=== PATIENT | female | born 1975 | race Caucasian/White ===

== ENCOUNTER 2017-11-10 09:22 | Inpatient (IN) | payer OTHER ==
[2017-11-10 09:46] VITALS: BMI 26.1
--- NOTE | 2017-11-10 11:01 | HP ---
COWS - Scale Resting Pulse: 0= [place] 80 or Below Sweatin= Chills/Flushing Restless Observation: 1= Difficult to Sit Still Pupil Size: 0= Normal to Room Light Bone or Joint Aches: 4=Acute Joint/Muscle Pain Runny Nose/ Eye Tearin= Runny Nose/Eyes GI Upset > 30mins: 2= Nausea/Diarrhea Tremor Observation: 2= Slight Tremor Visible Yawning Observation: 1= 1-2x During Session Anxiety or Irritability: 1=Feels Anxious/Irritable Goose Flesh Skin: 0=Smooth Skin COWS Score: 14 CIWA Score - CIWA Score Nausea/Vomitin Muscle Tremors: 2 Anxiety: 2 Agitation: 1-Slight > Activity Paroxysmal Sweats: 2 Orientation: 0-Oriented Tacttile Disturbances: 3-Moderate Itch/Numb/Burn Auditory Disturbances: 0-None Visual Disturbances: 0-None Headache: 0-None Present CIWA-Ar Total Score: 12 Admission [facility] Chief Complaint: Heroin Withdrawal symptoms Allergies/Adverse Reactions: Allergies Allergy/AdvReac Type Severity Reaction Status Date / Time ampicillin Allergy Severe Swelling Verified 11/10/17 10:00 cephalexin monohydrate Allergy Severe Difficulty Verified 11/10/17 10:00 [From Keflex] Breathing Penicillins Allergy Severe Swelling Verified 11/10/17 10:00 Tetracyclines Allergy Severe Swelling Verified 11/10/17 10:00 IODINE Allergy Severe Rash Uncoded 11/10/17 10:00 History of Present Illness: Patient presents with Heroin withdrawal symptoms. Patient completed rehab one year ago for Xanax dependence. Patient started using snorting heroin 5 years ago. Uses up to 1-2 bags daily. Last time patient used heroin 11/09/17 in the morning. Patient also smokes crystal meth x 2 months. Smokes one to two times weekly. Last time patient smoked was 5 days ago. Patient has hx of ADHD, Bipolar disorder, anxiety, COPD and agoraphobia. S/P back surgery one year ago. Recently incarcerated and released 07/05/17. Patient currently treated for anxiety and adhd with Xanax and Aderral. Patient wants to stop using all controlled medication. Last prescription for Xanax and Adderral was 09/10/17. Last time patient took Xanax 4 days ago and Adderal 2 days ago. Patient denies seizures from withdrawals. Denies SI/HI. History of suicide attempt 2015. - Ebola screening Have you traveled outside of the country in the last 21 days: No Have you had contact with anyone from an Ebola affected area: No Have you been sick,other than usual withdrawal symptoms: No Do you have a fever: No - Review of Systems Constitutional: Chills, Night Sweats, Changes in sleep, Weight Stable EENT: reports: Tearing, Nose Congestion Respiratory: reports: Cough, Wheezing Cardiac: reports: No Symptoms Reported GI: reports: Nausea, Poor Appetite, Poor Fluid Intake, Abdominal cramping : reports: No Symptoms Reported Musculoskeletal: reports: Back Pain, Muscle Pain Integumentary: reports: Rash, Sweating Neuro: reports: Numbness, Tremors Endocrine: reports: No Symptoms Reported Hematology: reports: No Symptoms Reported Psychiatric: reports: Orientated x3, Anxious, Depressed Patient History - Patient Medical History Hx Anemia: No Hx Asthma: No Hx Chronic Obstructive Pulmonary Disease (COPD): Yes Hx Cancer: No Hx Cardiac Disorders: No Hx Congestive Heart Failure: No Hx Hypertension: Yes (untreated ) Hx Hypercholesterolemia: No Hx Pacemaker: No HX Cerebrovascular Accident: No Hx Seizures: No Hx Dementia: No Hx Diabetes: No Hx Gastrointestinal Disorders: No Hx Liver Disease: No Hx Genitourinary Disorders: No Hx Sexually Transmitted Disorders: No Hx Renal Disease (ESRD): No Hx Thyroid Disease: No Hx Human Immunodeficiency Virus (HIV): No (NEGATIVE HX) Hx Hepatitis C: No Hx Depression: Yes Hx Suicide Attempt: Yes (pill overdose in 2014) Hx Bipolar Disorder: Yes (AND ANXIETY DISORDER) Hx Schizophrenia: No - Patient Surgical History Past Surgical History: Yes Hx Neurologic Surgery: No Hx Cataract Extraction: No Hx Cardiac Surgery: No Hx Lung Surgery: No Hx Breast Surgery: Yes (bilateral implants at age 33) Hx Breast Biopsy: No Hx Abdominal Surgery: No Hx Appendectomy: No Hx Cholecystectomy: No Hx Genitourinary Surgery: No Hx Section: No Hx Orthopedic Surgery: No Hx Hysterectomy: No Other Surgical History: removal of cyst, thyroid in 1989/lower back sx in 10/2016 Anesthesia Reaction: No - PPD History Previous Implant?: Yes Documented Results: Negative w/proof Implanted On Prior [facility] Admission?: Yes Date: 09/22/15 Results: 0 mm PPD to be Administered?: Yes - Reproductive History Last Menstrual Period: 11/02/17 Patient : No - Smoking Cessation Smoking history: Current every day smoker Have you smoked in the past 12 months: Yes Aproximately how many cigarettes per day: 10 Hx Chewing Tobacco Use: No Initiated information on smoking cessation: Yes 'Breaking Loose' booklet given: 11/10/17 - Substance & Tx. History Hx Alcohol Use: No Hx Substance Use: Yes Substance Use Type: Heroin, Prescribed, Tranquilizers Hx Substance Use Treatment: Yes - Substances Abused Heroin Route: Inhalation Frequency: Daily Amount used: 2 bags Age of first use: 37 Date of Last Use: 11/09/17 PCP Route: Smoking Frequency: 1-3 times last 30 days Amount used: 1 joint Age of first use: 39 Date of Last Use: 10/27/17 Crystal meth Route: Smoking Frequency: 1-2 times per week Amount used: $60 Age of first use: 42 Date of Last Use: 11/07/17 Family Disease History - Family Disease History Family Disease History: Other: Father (DEPENDENT ON ETOH AND DRUGS), Sister ( ALCOHOLIC) Admission Physical Exam [facility] - Vital Signs Vital Signs: Vital Signs - 24 hr 11/10/17 09:40 Temperature 97 F L Pulse Rate 73 Respiratory 19 Rate Blood Pressure 109/50 - Physical General Appearance: Yes: Appropriately Dressed, Tremorous, Sweating, Anxious HEENTM: Yes: EOMI, Hearing grossly Normal, Normocephalic, Normal Voice, JUDIE, Pharynx Normal, Nasal Congestion Respiratory: Yes: Chest Non-Tender, Lungs Clear, Normal Breath Sounds, No Respiratory Distress, No Accessory Muscle Use Neck: Yes: No masses,lesions,Nodules, Supple, Trachea in good position Breast: Yes: Breast Exam Deferred Cardiology: Yes: Regular Rhythm, Regular Rate, S1, S2 Abdominal: Yes: Normal Bowel Sounds, Non Tender, Soft Genitourinary: Yes: Within Normal Limits Back: Yes: Muscle Spasm Musculoskeletal: Yes: full range of Motion, Back pain, Muscle Pain Extremities: Yes: Normal Capillary Refill, Normal Range of Motion, Non-Tender, Tremors Neurological: Yes: dish maker II-XII NML intact, Fully Oriented, Alert, Depressed Affect Integumentary: Yes: Normal Color, Warm, Moist, Rash Lymphatic: Yes: Within Normal Limits - Diagnostic (1) Opioid dependence with withdrawal Current Visit: Yes Status: Acute (2) COPD (chronic obstructive pulmonary disease) Current Visit: Yes Status: Chronic Qualifiers: COPD type: unspecified COPD Qualified Code(s): J44.9 - Chronic obstructive pulmonary disease, unspecified (3) Anxiety Current Visit: Yes Status: Chronic (4) Methamphetamine dependence Current Visit: Yes Status: Acute (5) Bipolar I disorder with depression Current Visit: No Status: Chronic (6) Chronic lower back pain Current Visit: Yes Status: Chronic Qualifiers: Back pain laterality: midline Sciatica laterality: sciatica laterality unspecified (7) PCP (phencyclidine) abuse Current Visit: No Status: Chronic (8) Sedative dependence Current Visit: No Status: Chronic Cleared for Admission [facility] - Detox or Rehab [facility] Level of Care: Medically Managed Detox Regimen/Protocol: Methadone [facility] Breath Alcohol Content Breath Alcohol Content: 0 Urine Pregancy Test - Result Urine Test Results: Negative- NO Line Present Urine Drug Screen - Results Drug Screen Negative: No Urine Drug Screen Results: OPI-Opiates, AMP-Amphetamines, MET-Methamphetamine, PCP-Phencyclidine, BZO-Benzodiazepines
[2017-11-10] MEDS ORDERED: MENTHOL/PHENOL 1 EACH UD MM PRN (11:12)
[2017-11-10] MEDS ORDERED: guaiFENesin/D-METHORPHAN HB 10 ML UNIT-DOSE CUPS PO PRN (11:12)
[2017-11-10] MEDS ORDERED: P-EPHED 60MG/TRIPROLIDI 2.5MG TABLET PO PRN (11:12)
[2017-11-10] MEDS ORDERED: MAG HYDROX/AL HYDROX/SIMETH 30 ML UNIT-DOSE CUP PO PRN (11:12)
[2017-11-10] MEDS ORDERED: LOPERAMIDE HCL 2 MG CAPSULE PO PRN (11:12)
[2017-11-10] MEDS ORDERED: NICOTINE POLACRILEX 2 MG GUM BUC PRN (11:12)
[2017-11-10] MEDS ORDERED: MAGNESIUM HYDROX 2400MG/30ML ORAL SUSPENSION 30 ML CUP PO PRN (11:12)
[2017-11-10] MEDS ORDERED: ACETAMINOPHEN 325 MG TABLET (FP) PO PRN (11:12)
[2017-11-10] MEDS ORDERED: MAGNESIUM CITRATE 300 ML BOTTLE PO PRN (11:12)
[2017-11-10] MEDS ORDERED: ALBUTEROL SO4 18 GM HFA INHALER IH PRN (11:14)
[2017-11-10] MEDS ORDERED: METHADONE HCL 10 MG TABLET (FOR DETOX USE ONLY) PO ONE ×2 (11:50→23:00)
--- NOTE | 2017-11-10 16:24 | CONSULT ---
[facility] Psychiatric Consult - Data Date of interview: 11/10/17 Admission source: [facility] Identifying data: Patient is a 42 year old woman, , domiciled, mother of five, unemployed and receiving financial assistance from [facility]. This is one of multiple admissions for patient. Pt. admitted to for heroin, PCP, and crystal meth dependence. Substance Abuse History: Following information confirmed with Ms. Odonnell: Smoking Cessation. Smoking history: Current every day smoker. Have you smoked in the past 12 months: Yes. Aproximately how many cigarettes per day: 10. Hx Chewing Tobacco Use: No. Initiated information on smoking cessation: Yes. ' Breaking Loose' booklet given: 11/10/17. - Substance & Tx. History. Hx Alcohol Use: No. Hx Substance Use: Yes. Substance Use Type: Heroin, Prescribed , Tranquilizers. Hx Substance Use Treatment: Yes. - Substances Abused. Heroin. Route: Inhalation. Frequency: Daily. Amount used: 2 bags. Age of first use: 37. Date of Last Use: 11/09/17. PCP. Route: Smoking. Frequency : 1-3 times last 30 days. Amount used: 1 joint. Age of first use: 39. Date of Last Use: 10/27/17. Crystal meth. Route: Smoking. Frequency: 1-2 times per week. Amount used: $60. Age of first use: 42. Date of Last Use: 11/07/17 Medical History: removal of cyst, thyroid in 1989/lower back sx in 10/2016, hypertension. Psychiatric History: Patient's first psychiatric contact was at 6 years old which resulted in a diagnosis of ADHD. Patient reports four psychiatric hospitalizations, most recently at [facility] three years ago. Outpatient care is provided at the [facility] in [place]. Pt. reports a diagnosis of Bipolar disorder and ADHD. Pt. is prescribed effexor 150mg ER + Abilify 30mg + Ambien 10mg + Thorazine 10mg TID + Tenex 1mg althought reports sub-optimal adherence to medications. Patient reports one suicide attempt via speedballing approximately four years which resulted in patient admitted to the ICU. Pt. currently denies suicidal and homicidal ideation. Physical/Sexual Abuse/Trauma History: Denies. Additional Comment: Urine Drug Screen Results: OPI-Opiates, AMP-Amphetamines, MET-Methamphetamine, PCP-Phencyclidine, BZO-Benzodiazepines. Incarcerated from April 2017- June 2017 for DWI Mental Status Exam - Mental Status Exam Alert and Oriented to: Time, Place, Person Cognitive Function: Good Patient Appearance: Well Groomed Mood: Euthymic Affect: Mood Congruent Patient Behavior: Appropriate, Cooperative Speech Pattern: Appropriate Voice Loudness: Normal Thought Process: Intact Thought Disorder: Not Present Hallucinations: Denies Suicidal Ideation: Denies Homicidal Ideation: Denies Insight/Judgement: Poor Sleep: Poorly Appetite: Fair Muscle strength/Tone: Normal Gait/Station: Normal Psychiatric Findings - Problem List ([place] 1, 2,3) (1) Methamphetamine dependence Current Visit: Yes Status: Acute (2) Opioid dependence with withdrawal Current Visit: Yes Status: Acute (3) Opioid dependence Current Visit: Yes Status: Chronic (4) PCP (phencyclidine) abuse Current Visit: Yes Status: Acute (5) Sedative dependence Current Visit: Yes Status: Chronic (6) Substance induced mood disorder Current Visit: Yes Status: Acute - Initial Treatment Plan Initial Treatment Plan: Psychoeducation provided. Detoxification in progress. Effexor 150mg ER + Abilify 30mg qhs + Ambien 10mg qhs prn ordered. Benefits and side effects discussed. Verbal consent given. Will continue to monitor.
[2017-11-10 18:00] LABS: URINE APPEARANCE CLOUDY; URINE BLOOD NEGATIVE (NEGATIVE); URINE COLOR AMBER; URINE GLUCOSE (UA) 1+ (NEGATIVE); URINE KETONE TRACE (NEGATIVE); URINE LEUK ESTERASE TRACE (NEGATIVE); URINE NITRITE NEGATIVE (NEGATIVE)
[2017-11-10 18:19] LABS: URINE PROTEIN 1+ (NEGATIVE)
[2017-11-10 18:21] LABS: CALCIUM OXALATE CRYSTALS FEW /hpf (NONE SEEN); EPI CELLS MANY /HPF (FEW); URINE BACTERIA RARE /hpf (NONE SEEN); URINE HYALINE CAST 7 /lpf; URINE MUCUS MODERATE
[2017-11-10] MEDS ORDERED: MELATONIN 5 MG TABLETS PO PRN (22:00)
[2017-11-10] MEDS: ARIPiprazole 15 MG TABLET PO SCH (22:10)
[2017-11-10] MEDS: THIAMINE HCL 100 MG TABLET (FP) PO SCH (22:11)
[2017-11-10] MEDS: diazePAM 5 MG TABLET PO PRN (22:14)
[2017-11-10] MEDS: ZOLPIDEM TARTRATE 10 MG TABLET (PARK CARE ONLY) PO PRN (22:15)
[2017-11-11 09:57] LABS: HEMATOCRIT 39.7 % (32.4-45.2); HEMOGLOBIN 12.9 GM/dL (10.7-15.3); MCHC 32.5 g/dl (32.0-36.0); MEAN CELL VOLUME 92.2 fl (80-96); MEAN PLT VOLUME 8.8 fl (7.5-11.1); PLATELET COUNT 362 K/MM3 (134-434); RBC 4.31 M/mm3 (3.60-5.2); RDW 14.4 % (11.6-15.6); WHITE BLOOD COUNT 12.1 K/mm3 (4.0-10.0)
[2017-11-11] MEDS ORDERED: METHADONE HCL 10 MG TABLET (FOR DETOX USE ONLY) PO ONE (10:00)
[2017-11-11] MEDS: PRENATAL VITAMINS W/ FOLIC ACID TABLET (FP) PO SCH (10:19)
[2017-11-11] MEDS: diazePAM 5 MG TABLET PO PRN ×2 (10:20→22:21)
[2017-11-11] MEDS: NICOTINE 21 MG/24 HOURS TOPICAL PATCH TD SCH (10:20)
[2017-11-11] MEDS: VENLAFAXINE HCL 150 MG E.R. CAPSULE PO SCH (10:20)
[2017-11-11] MEDS: IBUPROFEN 400 MG TABLET (FP) PO PRN (10:22)
[2017-11-11 10:29] LABS: ALBUMIN 4.5 g/dl (3.4-5.0); ANION GAP 10 (8-16); BLOOD UREA NITROGEN 18 mg/dL (7-18); CALCIUM 9.6 mg/dL (8.5-10.1); CHLORIDE 101 mmol/L (98-107); CO2 26 mmol/L (21-32); GLUCOSE,RANDOM 117 mg/dL (74-106); POTASSIUM 4.1 mmol/L (3.5-5.1); SODIUM 137 mmol/L (136-145)
[2017-11-11 10:31] LABS: ALK PHOS 95 U/L (45-117); BILIRUBIN,TOTAL 0.4 mg/dL (0.2-1.0); CREATININE 1.2 mg/dL (0.55-1.02); SGOT/AST 17 U/L (15-37); SGPT/ALT 22 U/L (12-78); TOT PROT 7.9 g/dl (6.4-8.2)
--- NOTE | 2017-11-11 11:11 | PN ---
[facility] COWS - Scale Resting Pulse: 0= [place] 80 or Below Sweatin= Chills/Flushing Restless Observation: 3= Extraneous Movement Pupil Size: 1= Pupils >than Normal Bone or Joint Aches: 2= Severe Diffuse Aches Runny Nose/ Eye Tearin= Runny Nose/Eyes GI Upset > 30mins: 2= Nausea/Diarrhea Tremor Observation of Outstretched Hands: 2= Slight Tremor Visible Yawning Observation: 1= 1-2x During Session Anxiety or Irritability: 2=Irritable/Anxious Goose Flesh Skin: 0=Smooth Skin COWS Score: 16 [facility] Progress Note (SOAP) Subjective: alert,irritable,anxious,interrupted sleep,pain in the body and back Objective: 11/11/17 11:06 Vital Signs Temperature 97.7 F 11/11/17 09:52 Pulse Rate 60 11/11/17 09:52 Respiratory Rate 18 11/11/17 09:52 Blood Pressure 92/50 11/11/17 09:52 O2 Sat by Pulse Oximetry (%) ekg sinus bradycardia 52/min nonspecific t no chest pain,no sob,no dizziness Laboratory Last Values WBC 12.1 K/mm3 (4.0-10.0) H D 11/11/17 05:50 RBC 4.31 M/mm3 (3.60-5.2) 11/11/17 05:50 Hgb 12.9 GM/dL (10.7-15.3) D 11/11/17 05:50 Hct 39.7 % (32.4-45.2) 11/11/17 05:50 MCV 92.2 fl (80-96) 11/11/17 05:50 MCH 30.0 pg (25.7-33.7) 11/11/17 05:50 MCHC 32.5 g/dl (32.0-36.0) 11/11/17 05:50 RDW 14.4 % (11.6-15.6) D 11/11/17 05:50 Plt Count 362 K/MM3 (134-434) 11/11/17 05:50 MPV 8.8 fl (7.5-11.1) 11/11/17 05:50 Sodium 137 mmol/L (136-145) 11/11/17 05:50 Potassium 4.1 mmol/L (3.5-5.1) 11/11/17 05:50 Chloride 101 mmol/L (98-107) 11/11/17 05:50 Carbon Dioxide 26 mmol/L (21-32) 11/11/17 05:50 Anion Gap 10 (8-16) 11/11/17 05:50 BUN 18 mg/dL (7-18) 11/11/17 05:50 Creatinine 1.2 mg/dL (0.55-1.02) H 11/11/17 05:50 Creat Clearance w eGFR 49.03 (>60) 11/11/17 05:50 Random Glucose 117 mg/dL (74-106) H 11/11/17 05:50 Calcium 9.6 mg/dL (8.5-10.1) 11/11/17 05:50 Total Bilirubin 0.4 mg/dL (0.2-1.0) D 11/11/17 05:50 AST 17 U/L (15-37) 11/11/17 05:50 ALT 22 U/L (12-78) 11/11/17 05:50 Alkaline Phosphatase 95 U/L (45-117) 11/11/17 05:50 Total Protein 7.9 g/dl (6.4-8.2) 11/11/17 05:50 Albumin 4.5 g/dl (3.4-5.0) 11/11/17 05:50 Urine Color Brinda 11/10/17 15:00 Urine Appearance Cloudy 11/10/17 15:00 Urine pH 5.0 (5.0-8.0) 11/10/17 15:00 Ur Specific [place] 1.033 (1.001-1.035) 11/10/17 15:00 Urine Protein 1+ (NEGATIVE) H 11/10/17 15:00 Urine Glucose (UA) 1+ (NEGATIVE) H 11/10/17 15:00 Urine Ketones Trace (NEGATIVE) H 11/10/17 15:00 Urine Blood Negative (NEGATIVE) 11/10/17 15:00 Urine Nitrite Negative (NEGATIVE) 11/10/17 15:00 Urine Bilirubin 4.0 (<2.0 mg/dL) 11/10/17 15:00 Urine Urobilinogen 2.0 mg/dL (0.2-1.0) H 11/10/17 15:00 Ur Leukocyte Esterase Trace (NEGATIVE) 11/10/17 15:00 Urine WBC (Auto) 7 /hpf (3-5) 11/10/17 15:00 Urine RBC (Auto) 6 /hpf (0-3) 11/10/17 15:00 Ur Epithelial Cells Many /HPF (FEW) 11/10/17 15:00 Calcium Oxalate Crystal Few /hpf (NONE SEEN) 11/10/17 15:00 Urine Bacteria Rare /hpf (NONE SEEN) 11/10/17 15:00 Hyaline Casts 7 /lpf 11/10/17 15:00 Urine Mucus Moderate 11/10/17 15:00 Assessment: 11/11/17 11:11 withdrawal symptom Plan: continue detox,encourage oral fluid,bgm in am initial glucose 117, wbc is 12,100,repeat ua and cbc in am
[2017-11-11] MEDS: hydrOXYzine PAMOATE 50 MG CAPSULE (FP) PO PRN (11:30)
--- NOTE | 2017-11-11 13:35 | EKG ---
Test Reason : Blood Pressure : / mmHG Vent. Rate : 067 BPM Atrial Rate : 067 BPM P-R Int : 136 ms QRS Dur : 084 ms QT Int : 428 ms P-R-T Axes : 083 068 071 degrees QTc Int : 452 ms NORMAL SINUS RHYTHM NONSPECIFIC ST AND T WAVE ABNORMALITY ABNORMAL ECG WHEN COMPARED WITH ECG OF 02-JUN-2012 18:02, NO SIGNIFICANT CHANGE WAS FOUND Confirmed by ARTEMIO RAMÍREZ MD ([id number]) on 11/11/2017 1:35:01 PM Referred By: Confirmed By:ARTEMIO RAMÍREZ MD
[2017-11-11] MEDS: THIAMINE HCL 100 MG TABLET (FP) PO SCH (22:21)
[2017-11-11] MEDS: ARIPiprazole 15 MG TABLET PO SCH (22:21)
[2017-11-11] MEDS: ZOLPIDEM TARTRATE 10 MG TABLET (PARK CARE ONLY) PO PRN (22:21)
[2017-11-12] MEDS ORDERED: METHADONE HCL 5 MG TABLET (FOR DETOX USE ONLY) PO ONE (10:00)
[2017-11-12 10:14] LABS: HEMATOCRIT 38.6 % (32.4-45.2); HEMOGLOBIN 12.6 GM/dL (10.7-15.3); MCH 29.9 pg (25.7-33.7); MCHC 32.7 g/dl (32.0-36.0); MEAN CELL VOLUME 91.4 fl (80-96); MEAN PLT VOLUME 8.2 fl (7.5-11.1); PLATELET COUNT 305 K/MM3 (134-434); RBC 4.22 M/mm3 (3.60-5.2); RDW 14.6 % (11.6-15.6); WHITE BLOOD COUNT 7.7 K/mm3 (4.0-10.0)
--- NOTE | 2017-11-12 10:25 | EKG ---
Test Reason : Blood Pressure : / mmHG Vent. Rate : 052 BPM Atrial Rate : 052 BPM P-R Int : 124 ms QRS Dur : 084 ms QT Int : 452 ms P-R-T Axes : 058 073 072 degrees QTc Int : 420 ms SINUS BRADYCARDIA NONSPECIFIC ST AND T WAVE ABNORMALITY ABNORMAL ECG WHEN COMPARED WITH ECG OF 10-NOV-2017 12:23, NO SIGNIFICANT CHANGE WAS FOUND Confirmed by ANNITA DUFFY MD ([id number]) on 11/12/2017 10:24:53 AM Referred By: Confirmed By:ANNITA DUFFY MD
[2017-11-12] MEDS: PRENATAL VITAMINS W/ FOLIC ACID TABLET (FP) PO SCH (10:47)
[2017-11-12] MEDS: VENLAFAXINE HCL 150 MG E.R. CAPSULE PO SCH (10:48)
[2017-11-12] MEDS: NICOTINE 21 MG/24 HOURS TOPICAL PATCH TD SCH (10:49)
[2017-11-12] MEDS: diazePAM 5 MG TABLET PO PRN ×3 (10:51→22:09)
--- NOTE | 2017-11-12 11:45 | PN ---
[facility] CIWA - CIWA Score Nausea/Vomitin Muscle Tremors: 3 Anxiety: 3 Agitation: 2 Paroxysmal Sweats: 1-Minimal Palms Moist Orientation: 0-Oriented Tacttile Disturbances: 1-Very Mild Itch/Numbness Auditory Disturbances: 1-Very Mild Visual Disturbances: 0-None Headache: 2-Mild CIWA-Ar Total Score: 16 [facility] COWS - Scale Resting Pulse: 0= [place] 80 or Below Sweatin= Chills/Flushing Restless Observation: 3= Extraneous Movement Pupil Size: 1= Pupils >than Normal Bone or Joint Aches: 2= Severe Diffuse Aches Runny Nose/ Eye Tearin= Runny Nose/Eyes GI Upset > 30mins: 2= Nausea/Diarrhea Tremor Observation of Outstretched Hands: 2= Slight Tremor Visible Yawning Observation: 1= 1-2x During Session Anxiety or Irritability: 2=Irritable/Anxious Goose Flesh Skin: 0=Smooth Skin COWS Score: 16 [facility] Progress Note (SOAP) Subjective: alert,irritable,anxious,interrupted sleep,pain in the body and back,tremor Objective: 11/12/17 11:42 Vital Signs Temperature 97.7 F 11/12/17 08:55 Pulse Rate 53 L 11/12/17 08:55 Respiratory Rate 18 11/12/17 08:55 Blood Pressure 108/59 11/12/17 08:55 O2 Sat by Pulse Oximetry (%) Laboratory Last Values WBC 7.7 K/mm3 (4.0-10.0) D 11/12/17 07:30 RBC 4.22 M/mm3 (3.60-5.2) 11/12/17 07:30 Hgb 12.6 GM/dL (10.7-15.3) 11/12/17 07:30 Hct 38.6 % (32.4-45.2) 11/12/17 07:30 MCV 91.4 fl (80-96) 11/12/17 07:30 MCH 29.9 pg (25.7-33.7) 11/12/17 07:30 MCHC 32.7 g/dl (32.0-36.0) 11/12/17 07:30 RDW 14.6 % (11.6-15.6) 11/12/17 07:30 Plt Count 305 K/MM3 (134-434) 11/12/17 07:30 MPV 8.2 fl (7.5-11.1) 11/12/17 07:30 Sodium 137 mmol/L (136-145) 11/11/17 05:50 Potassium 4.1 mmol/L (3.5-5.1) 11/11/17 05:50 Chloride 101 mmol/L (98-107) 11/11/17 05:50 Carbon Dioxide 26 mmol/L (21-32) 11/11/17 05:50 Anion Gap 10 (8-16) 11/11/17 05:50 BUN 18 mg/dL (7-18) 11/11/17 05:50 Creatinine 1.2 mg/dL (0.55-1.02) H 11/11/17 05:50 Creat Clearance w eGFR 49.03 (>60) 11/11/17 05:50 Random Glucose 117 mg/dL (74-106) H 11/11/17 05:50 Fasting Glucose 80 mg/dL (70-105) 11/12/17 07:30 Calcium 9.6 mg/dL (8.5-10.1) 11/11/17 05:50 Total Bilirubin 0.4 mg/dL (0.2-1.0) D 11/11/17 05:50 AST 17 U/L (15-37) 11/11/17 05:50 ALT 22 U/L (12-78) 11/11/17 05:50 Alkaline Phosphatase 95 U/L (45-117) 11/11/17 05:50 Total Protein 7.9 g/dl (6.4-8.2) 11/11/17 05:50 Albumin 4.5 g/dl (3.4-5.0) 11/11/17 05:50 Urine Color Brinda 11/10/17 15:00 Urine Appearance Cloudy 11/10/17 15:00 Urine pH 5.0 (5.0-8.0) 11/10/17 15:00 Ur Specific [place] 1.033 (1.001-1.035) 11/10/17 15:00 Urine Protein 1+ (NEGATIVE) H 11/10/17 15:00 Urine Glucose (UA) 1+ (NEGATIVE) H 11/10/17 15:00 Urine Ketones Trace (NEGATIVE) H 11/10/17 15:00 Urine Blood Negative (NEGATIVE) 11/10/17 15:00 Urine Nitrite Negative (NEGATIVE) 11/10/17 15:00 Urine Bilirubin 4.0 (<2.0 mg/dL) 11/10/17 15:00 Urine Urobilinogen 2.0 mg/dL (0.2-1.0) H 11/10/17 15:00 Ur Leukocyte Esterase Trace (NEGATIVE) 11/10/17 15:00 Urine WBC (Auto) 7 /hpf (3-5) 11/10/17 15:00 Urine RBC (Auto) 6 /hpf (0-3) 11/10/17 15:00 Ur Epithelial Cells Many /HPF (FEW) 11/10/17 15:00 Calcium Oxalate Crystal Few /hpf (NONE SEEN) 11/10/17 15:00 Urine Bacteria Rare /hpf (NONE SEEN) 11/10/17 15:00 Hyaline Casts 7 /lpf 11/10/17 15:00 Urine Mucus Moderate 11/10/17 15:00 11/12/17 11:44 Laboratory Results - last 24 hr 11/12/17 11/12/17 07:30 07:30 WBC 7.7 D RBC 4.22 Hgb 12.6 Hct 38.6 MCV 91.4 MCH 29.9 MCHC 32.7 RDW 14.6 Plt Count 305 MPV 8.2 Fasting Glucose 80 Assessment: 11/12/17 11:44 withdrawal symptom Plan: continue detox
[2017-11-12] MEDS: CYCLOBENZAPRINE HCL 10 MG TABLET (FP) PO PRN (17:06)
[2017-11-12 17:16] LABS: URINE APPEARANCE CLOUDY; URINE BILIRUBIN NEGATIVE (<2.0 mg/dL); URINE BLOOD NEGATIVE (NEGATIVE); URINE COLOR DKYELLOW; URINE GLUCOSE (UA) NEGATIVE (NEGATIVE); URINE KETONE TRACE (NEGATIVE); URINE LEUK ESTERASE TRACE (NEGATIVE); URINE NITRITE NEGATIVE (NEGATIVE); URINE UROBILINOGEN NEGATIVE mg/dL (0.2-1.0)
[2017-11-12 17:29] LABS: URINE PROTEIN 1+ (NEGATIVE)
[2017-11-12 17:32] LABS: EPI CELLS MANY /HPF (FEW); URINE BACTERIA MODERATE /hpf (NONE SEEN); URINE MUCUS MANY
[2017-11-12] MEDS: THIAMINE HCL 100 MG TABLET (FP) PO SCH (22:08)
[2017-11-12] MEDS: ARIPiprazole 15 MG TABLET PO SCH (22:08)
[2017-11-12] MEDS: cloNIDine HCL 0.1 MG TABLET PO SCH (22:09)
[2017-11-12] MEDS: ZOLPIDEM TARTRATE 10 MG TABLET (PARK CARE ONLY) PO PRN (22:11)
[2017-11-13] MEDS ORDERED: METHADONE HCL 5 MG TABLET (FOR DETOX USE ONLY) PO ONE (10:00)
[2017-11-13] MEDS: PRENATAL VITAMINS W/ FOLIC ACID TABLET (FP) PO SCH (10:26)
[2017-11-13] MEDS: cloNIDine HCL 0.1 MG TABLET PO SCH ×2 (10:26→22:15)
[2017-11-13] MEDS: VENLAFAXINE HCL 150 MG E.R. CAPSULE PO SCH (10:26)
[2017-11-13] MEDS: NICOTINE 21 MG/24 HOURS TOPICAL PATCH TD SCH (10:26)
[2017-11-13] MEDS: LIDOCAINE 5% TOPICAL PATCH TP SCH (10:27)
[2017-11-13] MEDS: CYCLOBENZAPRINE HCL 10 MG TABLET (FP) PO PRN ×2 (10:31→22:17)
[2017-11-13] MEDS: diazePAM 5 MG TABLET PO PRN (10:31)
--- NOTE | 2017-11-13 11:26 | PN ---
S Progress Note Note: c/o of back pain, body aches, chills Vital Signs Temperature 98.2 F 11/13/17 10:00 Pulse Rate 68 11/13/17 10:00 Respiratory Rate 18 11/13/17 10:00 Blood Pressure 106/62 11/13/17 10:00 O2 Sat by Pulse Oximetry (%) Laboratory Last Values WBC 7.7 K/mm3 (4.0-10.0) D 11/12/17 07:30 RBC 4.22 M/mm3 (3.60-5.2) 11/12/17 07:30 Hgb 12.6 GM/dL (10.7-15.3) 11/12/17 07:30 Hct 38.6 % (32.4-45.2) 11/12/17 07:30 MCV 91.4 fl (80-96) 11/12/17 07:30 MCH 29.9 pg (25.7-33.7) 11/12/17 07:30 MCHC 32.7 g/dl (32.0-36.0) 11/12/17 07:30 RDW 14.6 % (11.6-15.6) 11/12/17 07:30 Plt Count 305 K/MM3 (134-434) 11/12/17 07:30 MPV 8.2 fl (7.5-11.1) 11/12/17 07:30 Sodium 137 mmol/L (136-145) 11/11/17 05:50 Potassium 4.1 mmol/L (3.5-5.1) 11/11/17 05:50 Chloride 101 mmol/L (98-107) 11/11/17 05:50 Carbon Dioxide 26 mmol/L (21-32) 11/11/17 05:50 Anion Gap 10 (8-16) 11/11/17 05:50 BUN 18 mg/dL (7-18) 11/11/17 05:50 Creatinine 1.2 mg/dL (0.55-1.02) H 11/11/17 05:50 Creat Clearance w eGFR 49.03 (>60) 11/11/17 05:50 Random Glucose 117 mg/dL (74-106) H 11/11/17 05:50 Fasting Glucose 80 mg/dL (70-105) 11/12/17 07:30 Calcium 9.6 mg/dL (8.5-10.1) 11/11/17 05:50 Total Bilirubin 0.4 mg/dL (0.2-1.0) D 11/11/17 05:50 AST 17 U/L (15-37) 11/11/17 05:50 ALT 22 U/L (12-78) 11/11/17 05:50 Alkaline Phosphatase 95 U/L (45-117) 11/11/17 05:50 Total Protein 7.9 g/dl (6.4-8.2) 11/11/17 05:50 Albumin 4.5 g/dl (3.4-5.0) 11/11/17 05:50 Urine Color [place] 11/12/17 13:50 Urine Appearance Cloudy 11/12/17 13:50 Urine pH 5.0 (5.0-8.0) 11/12/17 13:50 Ur Specific [place] 1.026 (1.001-1.035) 11/12/17 13:50 Urine Protein 1+ (NEGATIVE) H 11/12/17 13:50 Urine Glucose (UA) Negative (NEGATIVE) 11/12/17 13:50 Urine Ketones Trace (NEGATIVE) H 11/12/17 13:50 Urine Blood Negative (NEGATIVE) 11/12/17 13:50 Urine Nitrite Negative (NEGATIVE) 11/12/17 13:50 Urine Bilirubin Negative (<2.0 mg/dL) 11/12/17 13:50 Urine Urobilinogen Negative mg/dL (0.2-1.0) 11/12/17 13:50 Ur Leukocyte Esterase Trace (NEGATIVE) 11/12/17 13:50 Urine WBC (Auto) 40 /hpf (3-5) 11/12/17 13:50 Urine RBC (Auto) 77 /hpf (0-3) 11/12/17 13:50 Ur Epithelial Cells Many /HPF (FEW) 11/12/17 13:50 Calcium Oxalate Crystal Few /hpf (NONE SEEN) 11/10/17 15:00 Urine Bacteria Moderate /hpf (NONE SEEN) 11/12/17 13:50 Hyaline Casts 7 /lpf 11/10/17 15:00 Urine Mucus Many 11/12/17 13:50 RPR Titer Nonreactive (NONREACTIVE) 05/31/18 05:50 labs reviewed AO x3 no apparent distress no adventitious breath sounds + back pain ambulating in the unit , full ROM - back pain - withdrawal symptoms Plan: lidocaine patch increase fluids continue detox continue to monitor
[2017-11-13] MEDS: LIDOCAINE PATCH REMOVAL MC SCH (22:15)
[2017-11-13] MEDS: THIAMINE HCL 100 MG TABLET (FP) PO SCH (22:15)
[2017-11-13] MEDS: ARIPiprazole 15 MG TABLET PO SCH (22:15)
[2017-11-13] MEDS: hydrOXYzine PAMOATE 50 MG CAPSULE (FP) PO PRN (22:17)
[2017-11-14] MEDS ORDERED: METHADONE HCL 10 MG TABLET (FOR DETOX USE ONLY) PO ONE (10:00)
[2017-11-14] MEDS: VENLAFAXINE HCL 150 MG E.R. CAPSULE PO SCH (10:13)
[2017-11-14] MEDS: LIDOCAINE 5% TOPICAL PATCH TP SCH (10:13)
[2017-11-14] MEDS: cloNIDine HCL 0.1 MG TABLET PO SCH ×2 (10:13→22:27)
[2017-11-14] MEDS: NICOTINE 21 MG/24 HOURS TOPICAL PATCH TD SCH (10:13)
[2017-11-14] MEDS: PRENATAL VITAMINS W/ FOLIC ACID TABLET (FP) PO SCH (10:13)
[2017-11-14] MEDS: CYCLOBENZAPRINE HCL 10 MG TABLET (FP) PO PRN ×2 (10:14→22:30)
--- NOTE | 2017-11-14 11:44 | PN ---
S Progress Note (SOAP) Subjective: feeling better less joint pain no body ache no tremor less sweat sleep better at night mild gi nausea Objective: 11/14/17 11:42 Vital Signs Temperature 97.7 F 11/14/17 09:05 Pulse Rate 62 11/14/17 09:05 Respiratory Rate 18 11/14/17 09:05 Blood Pressure 106/62 11/14/17 09:05 O2 Sat by Pulse Oximetry (%) Laboratory Last Values WBC 7.7 K/mm3 (4.0-10.0) D 11/12/17 07:30 RBC 4.22 M/mm3 (3.60-5.2) 11/12/17 07:30 Hgb 12.6 GM/dL (10.7-15.3) 11/12/17 07:30 Hct 38.6 % (32.4-45.2) 11/12/17 07:30 MCV 91.4 fl (80-96) 11/12/17 07:30 MCH 29.9 pg (25.7-33.7) 11/12/17 07:30 MCHC 32.7 g/dl (32.0-36.0) 11/12/17 07:30 RDW 14.6 % (11.6-15.6) 11/12/17 07:30 Plt Count 305 K/MM3 (134-434) 11/12/17 07:30 MPV 8.2 fl (7.5-11.1) 11/12/17 07:30 Sodium 137 mmol/L (136-145) 11/11/17 05:50 Potassium 4.1 mmol/L (3.5-5.1) 11/11/17 05:50 Chloride 101 mmol/L (98-107) 11/11/17 05:50 Carbon Dioxide 26 mmol/L (21-32) 11/11/17 05:50 Anion Gap 10 (8-16) 11/11/17 05:50 BUN 18 mg/dL (7-18) 11/11/17 05:50 Creatinine 1.2 mg/dL (0.55-1.02) H 11/11/17 05:50 Creat Clearance w eGFR 49.03 (>60) 11/11/17 05:50 Random Glucose 117 mg/dL (74-106) H 11/11/17 05:50 Fasting Glucose 80 mg/dL (70-105) 11/12/17 07:30 Calcium 9.6 mg/dL (8.5-10.1) 11/11/17 05:50 Total Bilirubin 0.4 mg/dL (0.2-1.0) D 11/11/17 05:50 AST 17 U/L (15-37) 11/11/17 05:50 ALT 22 U/L (12-78) 11/11/17 05:50 Alkaline Phosphatase 95 U/L (45-117) 11/11/17 05:50 Total Protein 7.9 g/dl (6.4-8.2) 11/11/17 05:50 Albumin 4.5 g/dl (3.4-5.0) 11/11/17 05:50 Urine Color Dkyellow 11/12/17 13:50 Urine Appearance Cloudy 11/12/17 13:50 Urine pH 5.0 (5.0-8.0) 11/12/17 13:50 Ur Specific [place] 1.026 (1.001-1.035) 11/12/17 13:50 Urine Protein 1+ (NEGATIVE) H 11/12/17 13:50 Urine Glucose (UA) Negative (NEGATIVE) 11/12/17 13:50 Urine Ketones Trace (NEGATIVE) H 11/12/17 13:50 Urine Blood Negative (NEGATIVE) 11/12/17 13:50 Urine Nitrite Negative (NEGATIVE) 11/12/17 13:50 Urine Bilirubin Negative (<2.0 mg/dL) 11/12/17 13:50 Urine Urobilinogen Negative mg/dL (0.2-1.0) 11/12/17 13:50 Ur Leukocyte Esterase Trace (NEGATIVE) 11/12/17 13:50 Urine WBC (Auto) 40 /hpf (3-5) 11/12/17 13:50 Urine RBC (Auto) 77 /hpf (0-3) 11/12/17 13:50 Ur Epithelial Cells Many /HPF (FEW) 11/12/17 13:50 Calcium Oxalate Crystal Few /hpf (NONE SEEN) 11/10/17 15:00 Urine Bacteria Moderate /hpf (NONE SEEN) 11/12/17 13:50 Hyaline Casts 7 /lpf 11/10/17 15:00 Urine Mucus Many 11/12/17 13:50 RPR Titer Nonreactive (NONREACTIVE) 11/11/17 05:50 lab noted creatinin 1.2 gfr 49 Assessment: 11/14/17 11:43 mild withdrawal sx Plan: medically supervised detox health teaching uti prevention and personal hygiene
[2017-11-14] MEDS ORDERED: ONDANSETRON *ODT* 4 MG TABLET SL ONE (12:45)
[2017-11-14] MEDS: LIDOCAINE PATCH REMOVAL MC SCH (22:28)
[2017-11-14] MEDS: THIAMINE HCL 100 MG TABLET (FP) PO SCH (22:28)
[2017-11-14] MEDS: ARIPiprazole 15 MG TABLET PO SCH (22:28)
[2017-11-14] MEDS: IBUPROFEN 400 MG TABLET (FP) PO PRN (22:30)
[2017-11-15] MEDS ORDERED: METHADONE HCL 5 MG TABLET (FOR DETOX USE ONLY) PO ONE (06:00)
--- NOTE | 2017-11-15 09:02 | PN ---
[facility] Progress Note (SOAP) Subjective: alert,no complaint Objective: 11/15/17 09:00 Vital Signs Temperature 97.9 F 11/15/17 06:24 Pulse Rate 65 11/15/17 06:24 Respiratory Rate 18 11/15/17 06:24 Blood Pressure 119/54 11/15/17 06:24 O2 Sat by Pulse Oximetry (%) detox completed,no withdrawal symptom Assessment: 11/15/17 09:01 no withdrawal symptom Plan: discharge today
--- NOTE | 2017-11-15 09:16 | DS ---
[facility] Detox Discharge Summary Admission Date: 11/10/17 Discharge Date: 11/15/17 - History Present History: Opioid Dependence, Sedative Dependence Additional Comments: pcp abused methamphetamine dependence copd low back pain bipolar disorder - Physical Exam Results Vital Signs: Vital Signs Temperature 97.9 F 11/15/17 06:24 Pulse Rate 65 11/15/17 06:24 Respiratory Rate 18 11/15/17 06:24 Blood Pressure 119/54 11/15/17 06:24 O2 Sat by Pulse Oximetry (%) Pertinent Admission Physical Exam Findings: withdrawal signs and symptom Laboratory Last Values WBC 7.7 K/mm3 (4.0-10.0) D 11/12/17 07:30 RBC 4.22 M/mm3 (3.60-5.2) 11/12/17 07:30 Hgb 12.6 GM/dL (10.7-15.3) 11/12/17 07:30 Hct 38.6 % (32.4-45.2) 11/12/17 07:30 MCV 91.4 fl (80-96) 11/12/17 07:30 MCH 29.9 pg (25.7-33.7) 11/12/17 07:30 MCHC 32.7 g/dl (32.0-36.0) 11/12/17 07:30 RDW 14.6 % (11.6-15.6) 11/12/17 07:30 Plt Count 305 K/MM3 (134-434) 11/12/17 07:30 MPV 8.2 fl (7.5-11.1) 11/12/17 07:30 Sodium 137 mmol/L (136-145) 11/11/17 05:50 Potassium 4.1 mmol/L (3.5-5.1) 11/11/17 05:50 Chloride 101 mmol/L (98-107) 11/11/17 05:50 Carbon Dioxide 26 mmol/L (21-32) 11/11/17 05:50 Anion Gap 10 (8-16) 11/11/17 05:50 BUN 18 mg/dL (7-18) 11/11/17 05:50 Creatinine 1.2 mg/dL (0.55-1.02) H 11/11/17 05:50 Creat Clearance w eGFR 49.03 (>60) 11/11/17 05:50 Random Glucose 117 mg/dL (74-106) H 11/11/17 05:50 Fasting Glucose 80 mg/dL (70-105) 11/12/17 07:30 Calcium 9.6 mg/dL (8.5-10.1) 11/11/17 05:50 Total Bilirubin 0.4 mg/dL (0.2-1.0) D 11/11/17 05:50 AST 17 U/L (15-37) 11/11/17 05:50 ALT 22 U/L (12-78) 11/11/17 05:50 Alkaline Phosphatase 95 U/L (45-117) 11/11/17 05:50 Total Protein 7.9 g/dl (6.4-8.2) 11/11/17 05:50 Albumin 4.5 g/dl (3.4-5.0) 11/11/17 05:50 Urine Color Dkyellow 11/12/17 13:50 Urine Appearance Cloudy 11/12/17 13:50 Urine pH 5.0 (5.0-8.0) 11/12/17 13:50 Ur Specific [place] 1.026 (1.001-1.035) 11/12/17 13:50 Urine Protein 1+ (NEGATIVE) H 11/12/17 13:50 Urine Glucose (UA) Negative (NEGATIVE) 11/12/17 13:50 Urine Ketones Trace (NEGATIVE) H 11/12/17 13:50 Urine Blood Negative (NEGATIVE) 11/12/17 13:50 Urine Nitrite Negative (NEGATIVE) 11/12/17 13:50 Urine Bilirubin Negative (<2.0 mg/dL) 11/12/17 13:50 Urine Urobilinogen Negative mg/dL (0.2-1.0) 11/12/17 13:50 Ur Leukocyte Esterase Trace (NEGATIVE) 11/12/17 13:50 Urine WBC (Auto) 40 /hpf (3-5) 11/12/17 13:50 Urine RBC (Auto) 77 /hpf (0-3) 11/12/17 13:50 Ur Epithelial Cells Many /HPF (FEW) 11/12/17 13:50 Calcium Oxalate Crystal Few /hpf (NONE SEEN) 11/10/17 15:00 Urine Bacteria Moderate /hpf (NONE SEEN) 11/12/17 13:50 Hyaline Casts 7 /lpf 11/10/17 15:00 Urine Mucus Many 11/12/17 13:50 RPR Titer Nonreactive (NONREACTIVE) 11/11/17 05:50 Vital Signs Temperature 97.9 F 11/15/17 06:24 Pulse Rate 65 11/15/17 06:24 Respiratory Rate 18 11/15/17 06:24 Blood Pressure 119/54 11/15/17 06:24 O2 Sat by Pulse Oximetry (%) - Treatment Hospital Course: Detox Protocol Followed, Detoxed Safely, Responded well, Discharged Condition Good Patient has Accepted a Rehab Referral to: declined - Medication Discharge Medications: Ambulatory Orders Chlorpromazine [Thorazine -] 30 mg PO HS 10/01/14 Dextroamphetamine/Amphetamine [Adderall Xr 30 mg Capsule] 90 mg PO DAILY Alprazolam [Xanax] 2 mg PO BID 11/10/17 Aripiprazole [Abilify] 30 mg PO HS 11/10/17 Guanfacine HCl [Tenex (Nf) 1Mg Tablet -] 1 mg PO HS 11/10/17 Hydroxyzine HCl 100 mg PO HS 11/10/17 Sulfamethoxazole/Trimethoprim [Bactrim DS -] 1 tab PO BID 11/10/17 Tizanidine HCl 6 mg PO TID PRN 11/10/17 Venlafaxine HCl ER [Effexor Xr -] 150 mg PO DAILY 11/10/17 Zolpidem Tartrate [Ambien] 10 mg PO HS PRN 11/10/17 Albuterol Sulfate Inhaler - [Ventolin HFA Inhaler -] 2 inh PO Q4H PRN #1 inhaler 11/14/17 - Diagnosis (1) Opioid dependence with withdrawal Current Visit: Yes Status: Acute (2) PCP (phencyclidine) abuse Current Visit: Yes Status: Acute (3) COPD (chronic obstructive pulmonary disease) Current Visit: Yes Status: Chronic Qualifiers: COPD type: unspecified COPD Qualified Code(s): J44.9 - Chronic obstructive pulmonary disease, unspecified (4) Chronic lower back pain Current Visit: Yes Status: Chronic Qualifiers: Back pain laterality: midline Sciatica laterality: sciatica laterality unspecified (5) Sedative dependence Current Visit: Yes Status: Chronic (6) Bipolar I disorder with depression Current Visit: No Status: Chronic (7) UTI (urinary tract infection) Current Visit: Yes Status: Acute - AMA Did Patient Leave Against Medical Advice: No
[2017-11-15 09:44] VITALS: BP 97/61; PULSE 68; TEMP 97.5
[2017-11-15] MEDS ORDERED: SULFAMETHOXAZOLE/TRIMETHOPRIM 800MG/160MG D.S. TABLET PO SCH (10:00)
[2017-11-15] MEDS ORDERED: CIPROFLOXACIN 500 MG TABLET (RESTRICTED TO ID) PO SCH (10:00)
[2017-11-15] MEDS: VENLAFAXINE HCL 150 MG E.R. CAPSULE PO SCH (10:33)
[2017-11-15] MEDS: PRENATAL VITAMINS W/ FOLIC ACID TABLET (FP) PO SCH (10:33)
[2017-11-15] MEDS: LIDOCAINE 5% TOPICAL PATCH TP SCH (10:33)
[2017-11-15] MEDS: cloNIDine HCL 0.1 MG TABLET PO SCH (10:34)
[2017-11-15] MEDS: NICOTINE 21 MG/24 HOURS TOPICAL PATCH TD SCH (10:34)
== END 2017-11-15 10:50 | disposition home or self-care (01) | DRG 773 ==
LOC: YASAS 09:22 → Y6N 11:44
PROVIDERS: ADMIT Surgery; ATTEND Surgery
PROC: HZ2ZZZZ Detoxification Services for Substance Abuse Treatment (ICD-10-PCS; principal; 2017-11-10)
DX: F11.23 Opioid dependence with withdrawal (principal); F13.20 Sedative, hypnotic or anxiolytic dependence, uncomplicated; F15.20 Other stimulant dependence, uncomplicated; F16.10 Hallucinogen abuse, uncomplicated; F17.210 Nicotine dependence, cigarettes, uncomplicated; F31.89 Other bipolar disorder; F19.24 Other psychoactive substance dependence with psychoactive substance-induced mood disorder; I10 Essential (primary) hypertension; N39.0 Urinary tract infection, site not specified; M54.5 Low back pain; G89.29 Other chronic pain; Z91.5 Personal history of self-harm; Z88.8 Allergy status to other drugs, medicaments and biological substances
CPT/HCPCS: 36415; 80053; 81003; 81015; 82947; 85027; 86593; 93005; 93010; J0735

== ENCOUNTER 2017-11-23 09:44 | Inpatient (IN) | payer OTHER ==
[2017-11-23 10:09] VITALS: BMI 25.8
[2017-11-23] MEDS ORDERED: MENTHOL/PHENOL 1 EACH UD MM PRN (13:59)
[2017-11-23] MEDS ORDERED: MAGNESIUM HYDROX 2400MG/30ML ORAL SUSPENSION 30 ML CUP PO PRN (13:59)
[2017-11-23] MEDS ORDERED: MAGNESIUM CITRATE 300 ML BOTTLE PO PRN (13:59)
[2017-11-23] MEDS ORDERED: LOPERAMIDE HCL 2 MG CAPSULE PO PRN (13:59)
[2017-11-23] MEDS ORDERED: guaiFENesin/D-METHORPHAN HB 10 ML UNIT-DOSE CUPS PO PRN (13:59)
[2017-11-23] MEDS ORDERED: P-EPHED 60MG/TRIPROLIDI 2.5MG TABLET PO PRN (13:59)
[2017-11-23] MEDS ORDERED: MAG HYDROX/AL HYDROX/SIMETH 30 ML UNIT-DOSE CUP PO PRN (13:59)
--- NOTE | 2017-11-23 13:59 | HP ---
SHARMAINE SAENZ Rehab Assess/Revision - Admission History Admitted to Rehab from: [facility] (DETOX COMPLETED 11/10/17 TO 11/15/17) Date of Admission to Rehab: 11/23/17 - Vital signs Vital Signs: Vital Signs Period Temp Pulse Resp BP Sys/Wallace Pulse Ox Last 24 Hr 97.5 F 77 20 99/55 - Findings Detox History & Physical reviewed: Yes Concur with findings: Yes Comments/Additional Findings: PT RETURNED TO FOLLOW UP WITH AFTERCARE. ALERT O X 3. NAD. LUNGS:CLEAR TO AUSCULTATE. NAD. ADMIT PT TO REHAB TODAY. Inpatient Rehab Admission - Initial Determination Are CD services needed?: Yes Free of communicable disease: Yes Not in need of hospitalization: Yes - Rehab Admission Criteria Patient is meeting Inpatient Rehab admission criteria:: Yes
[2017-11-23] MEDS ORDERED: ALBUTEROL SO4 18 GM HFA INHALER IH PRN (14:02)
[2017-11-23] MEDS: NICOTINE 14 MG/24 HOURS TOPICAL PATCH TD SCH (15:14)
[2017-11-23] MEDS: IBUPROFEN 400 MG TABLET (FP) PO PRN (16:00)
--- NOTE | 2017-11-23 16:37 | PN ---
[facility] Progress Note Note: Called by nursing staff to order medication for newly admitted patient from [facility]. Medication reconciliation done. Abilify 30 mg po HS ordered. Patient was admitted to detox in this facility last month and discharged on Effexor ER 150 mg po daily. Pharmacy claims showed script for Effexor ER was filled numerous times as well. So Effexor ER 150 mg po daily ordered as well
[2017-11-23] MEDS: THIAMINE HCL 100 MG TABLET (FP) PO SCH (21:22)
[2017-11-23] MEDS: ARIPiprazole 15 MG TABLET PO SCH (21:22)
[2017-11-23] MEDS: MELATONIN 5 MG TABLETS PO PRN (21:23)
[2017-11-23 23:32] LABS: URINE APPEARANCE TURBID; URINE BILIRUBIN NEGATIVE (<2.0 mg/dL); URINE COLOR AMBER; URINE GLUCOSE (UA) NEGATIVE (NEGATIVE); URINE KETONE NEGATIVE (NEGATIVE); URINE LEUK ESTERASE NEGATIVE (NEGATIVE); URINE NITRITE NEGATIVE (NEGATIVE); URINE PROTEIN NEGATIVE (NEGATIVE); URINE UROBILINOGEN NEGATIVE mg/dL (0.2-1.0)
[2017-11-24] MEDS: VENLAFAXINE HCL 150 MG E.R. CAPSULE PO SCH (09:37)
[2017-11-24] MEDS: PRENATAL VITAMINS W/ FOLIC ACID TABLET (FP) PO SCH (09:37)
[2017-11-24] MEDS: IBUPROFEN 400 MG TABLET (FP) PO PRN (09:37)
[2017-11-24] MEDS: hydrOXYzine PAMOATE 50 MG CAPSULE (FP) PO PRN (09:38)
--- NOTE | 2017-11-24 09:38 | EKG ---
Test Reason : Blood Pressure : / mmHG Vent. Rate : 076 BPM Atrial Rate : 076 BPM P-R Int : 124 ms QRS Dur : 074 ms QT Int : 380 ms P-R-T Axes : 074 067 073 degrees QTc Int : 427 ms NORMAL SINUS RHYTHM POSSIBLE LEFT ATRIAL ENLARGEMENT BORDERLINE ECG WHEN COMPARED WITH ECG OF 11-NOV-2017 10:04, NO SIGNIFICANT CHANGE WAS FOUND Confirmed by SHARLENE SAENZ, DAIANA ([id number]) on 11/24/2017 9:38:06 AM Referred By: Confirmed By:DAIANA SU MD
[2017-11-24] MEDS: NICOTINE 14 MG/24 HOURS TOPICAL PATCH TD SCH (09:39)
--- NOTE | 2017-11-24 10:30 | HP ---
Psychiatrist Admission - Data Date of interview: 11/24/17 Admission source: [facility] Identifying data: This is one of the multiple admissions to [address] [place] [address] for this 42 yo H mother of 5 (children reside with family),unemployed,supported by [facility]. Medical History: Disk disease (spinal surgery). Psychiatric History: First contact with psychiatrist was in childhood to address hyperactivity,behavioral roblems.She was dx with ADHD,then with Bipolar disorder.Patient was placed on Depakote abd Prozac.She reports 7 psychiatric admissions and one suicidal attempt 2 yo (DOD).Currently she sees psychiatrist at [facility] in [facility].Current medications:Effexor XR 150 kmg po daily and Abolofy 30 mg po daily. Physical/Sexual Abuse/Trauma History: Denies Vital Signs: Vital Signs - 24 hr 11/24/17 11/24/17 11/24/17 00:30 03:30 06:30 Temperature 97.3 F L Pulse Rate 76 Respiratory 18 18 18 Rate Blood Pressure 130/70 11/24/17 09:37 Temperature Pulse Rate 78 Respiratory Rate Blood Pressure 111/72 Allergies/Adverse Reactions: Allergies Allergy/AdvReac Type Severity Reaction Status Date / Time ampicillin Allergy Severe Swelling Verified 11/23/17 12:18 cephalexin monohydrate Allergy Severe Difficulty Verified 11/23/17 12:18 [From Keflex] Breathing Penicillins Allergy Severe Swelling Verified 11/23/17 12:18 Tetracyclines Allergy Severe Swelling Verified 11/23/17 12:18 IODINE Allergy Severe Rash Uncoded 11/23/17 12:18 Date of last physical exam: 11/23/17 Concur with the findings of this exam: Yes - Substance Abuse/Tx History Hx Alcohol Use: No Hx Substance Use: Yes (heroin 2 yo,2 bags daily,$50,PCP,Methamphetamine) Substance Use Type: Heroin, Prescribed, Tranquilizers Hx Substance Use Treatment: Yes (longest abstinence 2,5 years) Mental Status Exam - Mental Status Exam Alert and Oriented to: Time, Place, Person Cognitive Function: Grossly Intact Patient Appearance: Well Groomed Mood: Nervous, Anxious Affect: Labile Patient Behavior: Cooperative Speech Pattern: Clear Voice Loudness: Normal Thought Process: Goal Oriented Thought Disorder: Not Present Hallucinations: Denies Suicidal Ideation: Denies Homicidal Ideation: Denies Insight/Judgement: Fair Sleep: Fair Appetite: Good Muscle strength/Tone: Normal Gait/Station: Normal Psychiatric Findings - Problem List ([place] 1, 2,3) (1) Methamphetamine dependence Current Visit: Yes Status: Chronic (2) PCP (phencyclidine) abuse Current Visit: Yes Status: Chronic (3) Bipolar II disorder Current Visit: Yes Status: Chronic (4) COPD (chronic obstructive pulmonary disease) Current Visit: Yes Status: Chronic Qualifiers: COPD type: unspecified COPD Qualified Code(s): J44.9 - Chronic obstructive pulmonary disease, unspecified (5) Chronic lower back pain Current Visit: Yes Status: Chronic Qualifiers: Back pain laterality: midline Sciatica laterality: sciatica laterality unspecified (6) Opioid dependence Current Visit: Yes Status: Chronic (7) Sedative dependence Current Visit: Yes Status: Chronic - Initial Treatment Plan Initial Treatment Plan: Continue Effexor XR 150 mg po daily,abilify 39 mg po daily.
[2017-11-24] MEDS: ACETAMINOPHEN 325 MG TABLET (FP) PO PRN (15:12)
[2017-11-24] MEDS ORDERED: PT OWN MED DRAWER 7, Y5N ONE (19:40)
[2017-11-24] MEDS: THIAMINE HCL 100 MG TABLET (FP) PO SCH (21:15)
[2017-11-24] MEDS: ARIPiprazole 15 MG TABLET PO SCH (21:15)
[2017-11-25] MEDS: PRENATAL VITAMINS W/ FOLIC ACID TABLET (FP) PO SCH (09:03)
[2017-11-25] MEDS: hydrOXYzine PAMOATE 50 MG CAPSULE (FP) PO PRN (09:03)
[2017-11-25] MEDS: VENLAFAXINE HCL 150 MG E.R. CAPSULE PO SCH (09:03)
[2017-11-25] MEDS: NICOTINE POLACRILEX 2 MG GUM BUC PRN (09:04)
[2017-11-25] MEDS: NICOTINE 14 MG/24 HOURS TOPICAL PATCH TD SCH (09:04)
--- NOTE | 2017-11-25 13:41 | PN ---
[facility] Progress Note Note: chronic back pain Vital Signs Temperature 97.3 F L 11/24/17 06:30 Pulse Rate 78 11/24/17 09:37 Respiratory Rate 18 11/25/17 00:30 Blood Pressure 111/72 11/24/17 09:37 O2 Sat by Pulse Oximetry (%) Laboratory Last Values Urine Color Brinda 11/23/17 15:55 Urine Appearance Turbid 11/23/17 15:55 Urine pH 5.0 (5.0-8.0) 11/23/17 15:55 Ur Specific [place] 1.020 (1.001-1.035) 11/23/17 15:55 Urine Protein Negative (NEGATIVE) 11/23/17 15:55 Urine Glucose (UA) Negative (NEGATIVE) 11/23/17 15:55 Urine Ketones Negative (NEGATIVE) 11/23/17 15:55 Urine Blood Negative (NEGATIVE) 11/23/17 15:55 Urine Nitrite Negative (NEGATIVE) 11/23/17 15:55 Urine Bilirubin Negative (<2.0 mg/dL) 11/23/17 15:55 Urine Urobilinogen Negative mg/dL (0.2-1.0) 11/23/17 15:55 Ur Leukocyte Esterase Negative (NEGATIVE) 11/23/17 15:55 Plan: Continue flexeril 5 mg TID as previously prescribed while in detox lidocaine patch for back qd increase fluids continue to monitor
[2017-11-25] MEDS: LIDOCAINE 5% TOPICAL PATCH TP SCH (14:20)
[2017-11-25] MEDS: CYCLOBENZAPRINE HCL 5 MG TABLET PO SCH ×2 (14:20→21:09)
[2017-11-25] MEDS ORDERED: PT OWN MED DRAWER 7, Y5N ONE (19:37)
[2017-11-25] MEDS: THIAMINE HCL 100 MG TABLET (FP) PO SCH (21:09)
[2017-11-25] MEDS: LIDOCAINE PATCH REMOVAL MC SCH (21:09)
[2017-11-25] MEDS: ARIPiprazole 15 MG TABLET PO SCH (21:10)
[2017-11-25] MEDS: MELATONIN 5 MG TABLETS PO PRN (21:11)
[2017-11-26] MEDS: CYCLOBENZAPRINE HCL 5 MG TABLET PO SCH ×3 (06:03→21:21)
[2017-11-26] MEDS: VENLAFAXINE HCL 150 MG E.R. CAPSULE PO SCH (10:15)
[2017-11-26] MEDS: LIDOCAINE 5% TOPICAL PATCH TP SCH (10:15)
[2017-11-26] MEDS: PRENATAL VITAMINS W/ FOLIC ACID TABLET (FP) PO SCH (10:15)
[2017-11-26] MEDS: NICOTINE 14 MG/24 HOURS TOPICAL PATCH TD SCH (10:16)
[2017-11-26] MEDS: hydrOXYzine PAMOATE 50 MG CAPSULE (FP) PO PRN ×2 (10:17→21:22)
[2017-11-26] MEDS: ACETAMINOPHEN 325 MG TABLET (FP) PO PRN (16:17)
[2017-11-26] MEDS: LIDOCAINE PATCH REMOVAL MC SCH (21:21)
[2017-11-26] MEDS: THIAMINE HCL 100 MG TABLET (FP) PO SCH (21:21)
[2017-11-26] MEDS: ARIPiprazole 15 MG TABLET PO SCH (21:22)
[2017-11-27] MEDS: CYCLOBENZAPRINE HCL 5 MG TABLET PO SCH ×3 (06:32→21:11)
[2017-11-27] MEDS: VENLAFAXINE HCL 150 MG E.R. CAPSULE PO SCH (09:16)
[2017-11-27] MEDS: NICOTINE 14 MG/24 HOURS TOPICAL PATCH TD SCH (09:17)
[2017-11-27] MEDS: LIDOCAINE 5% TOPICAL PATCH TP SCH (09:17)
[2017-11-27] MEDS: PRENATAL VITAMINS W/ FOLIC ACID TABLET (FP) PO SCH (09:17)
[2017-11-27] MEDS: hydrOXYzine PAMOATE 50 MG CAPSULE (FP) PO PRN ×2 (09:18→21:13)
[2017-11-27] MEDS: ACETAMINOPHEN 325 MG TABLET (FP) PO PRN (11:47)
[2017-11-27] MEDS ORDERED: PT OWN MED DRAWER 7, Y5N ONE (19:22)
[2017-11-27] MEDS: THIAMINE HCL 100 MG TABLET (FP) PO SCH (21:12)
[2017-11-27] MEDS: ARIPiprazole 15 MG TABLET PO SCH (21:12)
[2017-11-27] MEDS: MELATONIN 5 MG TABLETS PO PRN (21:13)
[2017-11-27] MEDS: LIDOCAINE PATCH REMOVAL MC SCH (21:51)
[2017-11-28] MEDS: CYCLOBENZAPRINE HCL 5 MG TABLET PO SCH ×3 (06:46→21:15)
[2017-11-28] MEDS: VENLAFAXINE HCL 150 MG E.R. CAPSULE PO SCH (09:22)
[2017-11-28] MEDS: LIDOCAINE 5% TOPICAL PATCH TP SCH (09:22)
[2017-11-28] MEDS: NICOTINE 14 MG/24 HOURS TOPICAL PATCH TD SCH (09:23)
[2017-11-28] MEDS: hydrOXYzine PAMOATE 50 MG CAPSULE (FP) PO PRN (09:23)
[2017-11-28] MEDS: PRENATAL VITAMINS W/ FOLIC ACID TABLET (FP) PO SCH (09:23)
[2017-11-28] MEDS: ACETAMINOPHEN 325 MG TABLET (FP) PO PRN (11:48)
[2017-11-28] MEDS: IBUPROFEN 400 MG TABLET (FP) PO PRN (16:31)
[2017-11-28] MEDS: THIAMINE HCL 100 MG TABLET (FP) PO SCH (21:15)
[2017-11-28] MEDS: ARIPiprazole 15 MG TABLET PO SCH (21:15)
[2017-11-28] MEDS: MELATONIN 5 MG TABLETS PO PRN (21:16)
[2017-11-28] MEDS: NICOTINE POLACRILEX 2 MG GUM BUC PRN (21:17)
[2017-11-28] MEDS: LIDOCAINE PATCH REMOVAL MC SCH (21:54)
[2017-11-29] MEDS: CYCLOBENZAPRINE HCL 5 MG TABLET PO SCH ×2 (06:25→13:46)
[2017-11-29] MEDS: NICOTINE 14 MG/24 HOURS TOPICAL PATCH TD SCH (09:25)
[2017-11-29] MEDS: VENLAFAXINE HCL 150 MG E.R. CAPSULE PO SCH (09:25)
[2017-11-29] MEDS: LIDOCAINE 5% TOPICAL PATCH TP SCH (09:25)
[2017-11-29] MEDS: PRENATAL VITAMINS W/ FOLIC ACID TABLET (FP) PO SCH (09:25)
[2017-11-29] MEDS: hydrOXYzine PAMOATE 50 MG CAPSULE (FP) PO PRN ×2 (09:26→21:15)
--- NOTE | 2017-11-29 15:57 | PN ---
[facility] Progress Note Note: PATIENT STATES FLEXERIL AND IBUPROFEN NOT HELPING LBP. PAIN CONSTANT AND RADIATES TO LEGS. PATIENT MEDICALLY STABLE. WILL D/C IBUPROFEN AND FLEXERIL. START ROBAXIN 500MG BID AND CONTINUE TO MONITOR CLINICALLY.
[2017-11-29] MEDS ORDERED: PT OWN MED DRAWER 7, Y5N ONE (19:41)
[2017-11-29] MEDS: ARIPiprazole 15 MG TABLET PO SCH (21:12)
[2017-11-29] MEDS: LIDOCAINE PATCH REMOVAL MC SCH (21:12)
[2017-11-29] MEDS: THIAMINE HCL 100 MG TABLET (FP) PO SCH (21:12)
[2017-11-29] MEDS: METHOCARBAMOL 500 MG TABLET PO SCH (21:13)
[2017-11-29] MEDS: NICOTINE POLACRILEX 2 MG GUM BUC PRN (21:15)
[2017-11-30] MEDS: PRENATAL VITAMINS W/ FOLIC ACID TABLET (FP) PO SCH (09:28)
[2017-11-30] MEDS: LIDOCAINE 5% TOPICAL PATCH TP SCH (09:28)
[2017-11-30] MEDS: VENLAFAXINE HCL 150 MG E.R. CAPSULE PO SCH (09:28)
[2017-11-30] MEDS: METHOCARBAMOL 500 MG TABLET PO SCH ×2 (09:28→21:15)
[2017-11-30] MEDS: NICOTINE 14 MG/24 HOURS TOPICAL PATCH TD SCH (09:29)
[2017-11-30] MEDS: hydrOXYzine PAMOATE 50 MG CAPSULE (FP) PO PRN ×2 (09:29→21:16)
[2017-11-30] MEDS ORDERED: COLLOIDAL OATMEAL 1 BAR EACH TP PRN (15:30)
[2017-11-30] MEDS: BACITRACIN 0.9 GM PACKET TP SCH (17:15)
[2017-11-30] MEDS: THIAMINE HCL 100 MG TABLET (FP) PO SCH (21:15)
[2017-11-30] MEDS: LIDOCAINE PATCH REMOVAL MC SCH (21:16)
[2017-11-30] MEDS: ARIPiprazole 15 MG TABLET PO SCH (21:16)
[2017-12-01] MEDS: VENLAFAXINE HCL 150 MG E.R. CAPSULE PO SCH (09:09)
[2017-12-01] MEDS: NICOTINE 14 MG/24 HOURS TOPICAL PATCH TD SCH (09:09)
[2017-12-01] MEDS: BACITRACIN 0.9 GM PACKET TP SCH (09:09)
[2017-12-01] MEDS: PRENATAL VITAMINS W/ FOLIC ACID TABLET (FP) PO SCH (09:09)
[2017-12-01] MEDS: METHOCARBAMOL 500 MG TABLET PO SCH ×2 (09:09→21:10)
[2017-12-01] MEDS: LIDOCAINE 5% TOPICAL PATCH TP SCH (09:10)
[2017-12-01] MEDS: hydrOXYzine PAMOATE 50 MG CAPSULE (FP) PO PRN (09:11)
--- NOTE | 2017-12-01 16:04 | PN ---
Psychiatric Progress Note Vital Signs: Vital Signs Period Temp Pulse Resp BP Sys/Wallace Pulse Ox Last 24 Hr 97.8 F 98-102 -18 120-121/83-84 Date of Session: 12/01/17 Chief Complaint:: Zachary having sleeping difficulties." HPI: Methamphetamine,Anxiolytic,Opioid dependence,PCP comorbid with Bipolar disorder. ROS: COPD,Chronic low back pain. Current Medications: Active Medications Generic Name Dose Route Start Last Admin Trade Name Freq PRN Reason Stop Dose Admin Acetaminophen 650 mg 11/23/17 13:59 11/28/17 11:48 Tylenol - PO 650 mg Q4H PRN Administration FEVER Al Hydroxide/Mg Hydroxide 30 ml 11/23/17 13:59 Mylanta Oral Suspension - PO Q6H PRN DYSPEPSIA Albuterol Sulfate 2 puff 11/23/17 14:02 12/01/17 12:12 Ventolin Hfa Inhaler - IH 2 inh Q4H PRN Administration ASTHMA Aripiprazole 30 mg 11/23/17 22:00 11/30/17 21:16 Abilify PO 30 mg HS LAURENCE Administration Bacitracin 0.9 gm 11/30/17 16:45 12/01/17 09:09 Bacitracin - TP 0.9 gm DAILY LAURENCE Administration Colloidal Oatmeal 1 applic 11/30/17 15:30 Aveeno Soap - TP DAILY PRN HYGEINE Diphenhydramine HCl 50 mg 12/01/17 15:48 Benadryl - PO HS PRN INSOMNIA Eucalyptus/Menthol/Phenol/Sorbitol 1 each 11/23/17 13:59 Cepastat Lozenge - MM Q4H PRN SORE THROAT Guaifenesin 10 ml 11/23/17 13:59 Robitussin Dm - PO Q6H PRN COUGH Hydroxyzine Pamoate 50 mg 11/23/17 13:59 12/01/17 09:11 Vistaril - PO 50 mg Q4H PRN Administration AGITATION Lidocaine 1 patch 11/25/17 14:00 12/01/17 09:10 Lidoderm Patch - TP 1 patch DAILY LAURENCE Administration Loperamide HCl 4 mg 11/23/17 13:59 Imodium - PO Q6H PRN DIARRHEA Magnesium Citrate 300 ml 11/23/17 13:59 Citroma - PO Q48H PRN CONSTIPATION Magnesium Hydroxide 30 ml 11/23/17 13:59 Milk Of Magnesia - PO DAILY PRN CONSTIPATION Methocarbamol 500 mg 11/29/17 22:00 12/01/17 09:09 Robaxin - PO 500 mg BID LAURENCE Administration Miscellaneous 1 each 11/25/17 22:00 11/30/17 21:16 Lidoderm Patch Removal MC 1 each DAILY@2200 LAURENCE Administration Nicotine 14 mg 11/23/17 14:15 12/01/17 09:09 Nicoderm Patch - TD 14 mg DAILY LAURENCE Administration Nicotine Polacrilex 2 mg 11/23/17 13:59 11/29/17 21:15 Nicorette Gum - BUC 2 mg Q2H PRN Administration NICOTINE REPLACEMENT RX Multivit/Folic Acid/Iron 1 tab 11/24/17 10:00 12/01/17 09:09 Vitamins (Sjr) - PO 1 tab DAILY LAURENCE Administration Thiamine HCl 100 mg 11/23/17 22:00 11/30/17 21:15 Vitamin B1 - PO 100 mg HS LAURENCE Administration Trazodone HCl 50 mg 12/01/17 22:00 Desyrel - PO HS LAURENCE Venlafaxine HCl 150 mg 11/24/17 10:00 12/01/17 09:09 Effexor Xr - PO 150 mg DAILY LAURENCE Administration Current Side Effect: No Lab tests ordered: No Lab tests reviewed: Yes Provider note:: Chart was revuewed,patient was seen in my office to address her ongoing sleeping difficulties.Properties of Trazodone has been discussed with the patient including side effects profile,benefits and dose adjustment.Trazodone 50 mg po hs and Benadryl 50 mg po hs prn will be started tonight.Patient kin continue Effexor XR 150 mg po daily and Abilify 30 mg po daily. Supportive therapy provided. Total face to face time:: 25 Mental Status Exam - Mental Status Exam Alert and Oriented to: Time, Place, Person Cognitive Function: Grossly Intact Patient Appearance: Well Groomed Mood: Anxious Affect: Mood Congruent, Labile Patient Behavior: Cooperative Speech Pattern: Clear Voice Loudness: Normal Thought Process: Goal Oriented Thought Disorder: Not Present Hallucinations: Denies Suicidal Ideation: Denies Homicidal Ideation: Denies Insight/Judgement: Fair Sleep: Difficulty falling asleep Appetite: Fair Muscle strength/Tone: Normal Gait/Station: Normal Psychiatric Treatment Plan - Problem List (1) Methamphetamine dependence Current Visit: Yes (2) PCP (phencyclidine) abuse Current Visit: Yes (3) Bipolar II disorder Current Visit: Yes (4) COPD (chronic obstructive pulmonary disease) Current Visit: Yes Qualifiers: COPD type: unspecified COPD Qualified Code(s): J44.9 - Chronic obstructive pulmonary disease, unspecified (5) Chronic lower back pain Current Visit: Yes Qualifiers: Back pain laterality: midline Sciatica laterality: sciatica laterality unspecified (6) Opioid dependence Current Visit: Yes (7) Sedative dependence Current Visit: Yes
[2017-12-01] MEDS: ACETAMINOPHEN 325 MG TABLET (FP) PO PRN (18:51)
[2017-12-01] MEDS: THIAMINE HCL 100 MG TABLET (FP) PO SCH (21:10)
[2017-12-01] MEDS: diphenhydrAMINE HCL 50 MG CAPSULE PO PRN (21:10)
[2017-12-01] MEDS: traZODone HCL 50 MG TABLET (FP) PO SCH (21:10)
[2017-12-01] MEDS: LIDOCAINE PATCH REMOVAL MC SCH (21:11)
[2017-12-01] MEDS: ARIPiprazole 15 MG TABLET PO SCH (21:12)
[2017-12-01] MEDS ORDERED: PT OWN MED DRAWER 7, Y5N ONE (21:12)
[2017-12-02] MEDS: VENLAFAXINE HCL 150 MG E.R. CAPSULE PO SCH (09:31)
[2017-12-02] MEDS: LIDOCAINE 5% TOPICAL PATCH TP SCH (09:32)
[2017-12-02] MEDS: METHOCARBAMOL 500 MG TABLET PO SCH ×2 (09:32→21:08)
[2017-12-02] MEDS: PRENATAL VITAMINS W/ FOLIC ACID TABLET (FP) PO SCH (09:32)
[2017-12-02] MEDS: NICOTINE 14 MG/24 HOURS TOPICAL PATCH TD SCH (09:33)
[2017-12-02] MEDS: BACITRACIN 0.9 GM PACKET TP SCH (09:33)
[2017-12-02] MEDS: hydrOXYzine PAMOATE 50 MG CAPSULE (FP) PO PRN (09:34)
[2017-12-02] MEDS: ACETAMINOPHEN 325 MG TABLET (FP) PO PRN ×2 (11:03→16:50)
[2017-12-02] MEDS ORDERED: PT OWN MED DRAWER 7, Y5N ONE (19:28)
[2017-12-02] MEDS: traZODone HCL 50 MG TABLET (FP) PO SCH (21:08)
[2017-12-02] MEDS: ARIPiprazole 15 MG TABLET PO SCH (21:08)
[2017-12-02] MEDS: THIAMINE HCL 100 MG TABLET (FP) PO SCH (21:08)
[2017-12-02] MEDS: LIDOCAINE PATCH REMOVAL MC SCH (21:08)
[2017-12-02] MEDS: diphenhydrAMINE HCL 50 MG CAPSULE PO PRN (21:09)
[2017-12-03 06:35] VITALS: BP 103/74; PULSE 100; TEMP 97.2
[2017-12-03] MEDS: METHOCARBAMOL 500 MG TABLET PO SCH (09:34)
[2017-12-03] MEDS: PRENATAL VITAMINS W/ FOLIC ACID TABLET (FP) PO SCH (09:34)
[2017-12-03] MEDS: BACITRACIN 0.9 GM PACKET TP SCH (09:34)
[2017-12-03] MEDS: LIDOCAINE 5% TOPICAL PATCH TP SCH (09:35)
[2017-12-03] MEDS: NICOTINE 14 MG/24 HOURS TOPICAL PATCH TD SCH (09:35)
[2017-12-03] MEDS: VENLAFAXINE HCL 150 MG E.R. CAPSULE PO SCH (09:35)
[2017-12-03] MEDS: hydrOXYzine PAMOATE 50 MG CAPSULE (FP) PO PRN (09:36)
[2017-12-03] MEDS ORDERED: PT OWN MED DRAWER 7, Y5N ONE (10:45)
--- NOTE | 2017-12-03 10:51 | PN ---
Psychiatric Progress Note Vital Signs: Vital Signs Period Temp Pulse Resp BP Sys/Wallace Pulse Ox Last 24 Hr 97.2 F 100 16-18 103/74 Date of Session: 12/03/17 Chief Complaint:: Discharge visit HPI: PCP,Methamphetamine,Opioid and Anxiolytic dependence comorbid with Bipolar disorder. ROS: Significant for COPD,Low back pain. Current Medications: Active Medications Generic Name Dose Route Start Last Admin Trade Name Freq PRN Reason Stop Dose Admin Acetaminophen 650 mg 11/23/17 13:59 12/02/17 16:50 Tylenol - PO 650 mg Q4H PRN Administration FEVER Al Hydroxide/Mg Hydroxide 30 ml 11/23/17 13:59 Mylanta Oral Suspension - PO Q6H PRN DYSPEPSIA Albuterol Sulfate 2 puff 11/23/17 14:02 12/01/17 12:12 Ventolin Hfa Inhaler - IH 2 inh Q4H PRN Administration ASTHMA Aripiprazole 30 mg 11/23/17 22:00 12/02/17 21:08 Abilify PO 30 mg HS LAURENCE Administration Bacitracin 0.9 gm 11/30/17 16:45 12/03/17 09:34 Bacitracin - TP 0.9 gm DAILY LAURENCE Administration Colloidal Oatmeal 1 applic 11/30/17 15:30 Aveeno Soap - TP DAILY PRN HYGEINE Diphenhydramine HCl 50 mg 12/01/17 15:48 12/02/17 21:09 Benadryl - PO 50 mg HS PRN Administration INSOMNIA Eucalyptus/Menthol/Phenol/Sorbitol 1 each 11/23/17 13:59 Cepastat Lozenge - MM Q4H PRN SORE THROAT Guaifenesin 10 ml 11/23/17 13:59 Robitussin Dm - PO Q6H PRN COUGH Hydroxyzine Pamoate 50 mg 11/23/17 13:59 12/03/17 09:36 Vistaril - PO 50 mg Q4H PRN Administration AGITATION Lidocaine 1 patch 11/25/17 14:00 12/03/17 09:35 Lidoderm Patch - TP 1 patch DAILY LAURENCE Administration Loperamide HCl 4 mg 11/23/17 13:59 Imodium - PO Q6H PRN DIARRHEA Magnesium Citrate 300 ml 11/23/17 13:59 Citroma - PO Q48H PRN CONSTIPATION Magnesium Hydroxide 30 ml 06/12/18 13:59 Milk Of Magnesia - PO DAILY PRN CONSTIPATION Methocarbamol 500 mg 11/29/17 22:00 12/03/17 09:34 Robaxin - PO 500 mg BID LAURENCE Administration Miscellaneous 1 each 11/25/17 22:00 12/02/17 21:08 Lidoderm Patch Removal MC 1 each DAILY@2200 LAURENCE Administration Nicotine 14 mg 11/23/17 14:15 12/03/17 09:35 Nicoderm Patch - TD 14 mg DAILY LAURENCE Administration Nicotine Polacrilex 2 mg 11/23/17 13:59 11/29/17 21:15 Nicorette Gum - BUC 2 mg Q2H PRN Administration NICOTINE REPLACEMENT RX Multivit/Folic Acid/Iron 1 tab 11/24/17 10:00 12/03/17 09:34 Vitamins (Sjr) - PO 1 tab DAILY LAURENCE Administration Thiamine HCl 100 mg 11/23/17 22:00 12/02/17 21:08 Vitamin B1 - PO 100 mg HS LAURENCE Administration Trazodone HCl 50 mg 12/01/17 22:00 12/02/17 21:08 Desyrel - PO 50 mg HS LAURENCE Administration Venlafaxine HCl 150 mg 11/24/17 10:00 12/03/17 09:35 Effexor Xr - PO Not Given DAILY LAURENCE Current Side Effect: No Lab tests ordered: No Lab tests reviewed: Yes Provider note:: Patient completed this program today(Early discharge due to medical reason).She has partially met her treatment goals and will continue to address her issues on outpatient basis at [facility] in [facility].Patient reports finding that current medications including :Abilify 30 mg po daily,Effexor XR 150 mg po daily and TRazodone 50 mg po hs help to cope with depression,mood instability,insomnia and anxiety.Scripts for 30 days provided. Supportive therapy provided focusing on relapse prevention. Patient is tsable for discharge today. Total face to face time:: 30 Mental Status Exam - Mental Status Exam Alert and Oriented to: Time, Place, Person Cognitive Function: Grossly Intact Patient Appearance: Unkempt Mood: Anxious Affect: Labile Patient Behavior: Cooperative Speech Pattern: Clear Voice Loudness: Normal Thought Process: Goal Oriented Thought Disorder: Not Present Hallucinations: Denies Suicidal Ideation: Denies Homicidal Ideation: Denies Insight/Judgement: Fair Sleep: Fair Appetite: Fair Muscle strength/Tone: Normal Gait/Station: Normal Psychiatric Treatment Plan - Problem List (1) Methamphetamine dependence Current Visit: Yes (2) PCP (phencyclidine) abuse Current Visit: Yes (3) Bipolar II disorder Current Visit: Yes (4) COPD (chronic obstructive pulmonary disease) Current Visit: Yes Qualifiers: COPD type: unspecified COPD Qualified Code(s): J44.9 - Chronic obstructive pulmonary disease, unspecified (5) Chronic lower back pain Current Visit: Yes Qualifiers: Back pain laterality: midline Sciatica laterality: sciatica laterality unspecified (6) Opioid dependence Current Visit: Yes (7) Sedative dependence Current Visit: Yes
== END 2017-12-03 10:50 | disposition home or self-care (01) | DRG 772 ==
LOC: YASAS 09:44 → Y3E 13:22
PROVIDERS: ADMIT Psychiatry & Neurology Psychiatry; ATTEND Psychiatry & Neurology Psychiatry
PROC: HZ42ZZZ Group Counseling for Substance Abuse Treatment, Cognitive-Behavioral (ICD-10-PCS; principal; 2017-11-23)
DX: F11.20 Opioid dependence, uncomplicated (principal); F13.20 Sedative, hypnotic or anxiolytic dependence, uncomplicated; F15.20 Other stimulant dependence, uncomplicated; F16.10 Hallucinogen abuse, uncomplicated; F31.81 Bipolar II disorder; J44.9 Chronic obstructive pulmonary disease, unspecified; M54.5 Low back pain; Z91.5 Personal history of self-harm; Z88.8 Allergy status to other drugs, medicaments and biological substances
CPT/HCPCS: 81003; 93005; 93010

== ENCOUNTER 2019-12-11 20:26 | Emergency (ER) | payer OTHER ==
[2019-12-11 21:14] VITALS: BP 93/61; PULSE 87; TEMP 98.3; BMI 18.6
--- NOTE | 2019-12-11 21:27 | PDOC ---
Documentation entered by Maru Bauer SCRIBE, acting as scribe for Cher Pond MD. Cher Pond MD: This documentation has been prepared by the Leslie peña Sydney, SCRIBE, under my direction and personally reviewed by me in its entirety. I confirm that the documentation accurately reflects all work, treatment, procedures, and medical decision making performed by me. Attending Attestation - Resident Resident Name: Jama Rae - ED Attending Attestation I have performed the following: I have examined & evaluated the patient, The case was reviewed & discussed with the resident, I agree w/resident's findings & plan, Exceptions are as noted - HPI HPI: 12/11/19 21:27 44 yo female BIBA for somnolence after drug use. She reports smoking PCP 12/11/19 21:34 12/11/19 23:35 - Physicial Exam PE: 12/11/19 21:27 slender 44 yo female BIBA for drug abuse ,somnolent head ncat eyes javier eomi neck supple lungs cta b/l [id number] abdoman flat skin warm and dry extremities no deformities neuro awakes to sternal rub 12/11/19 21:36 12/11/19 21:53 12/11/19 23:51 - Medical Decision Making 12/11/19 23:36 Patient is now fully awake and ambulating with ease. She refuses a head ct scan and signed an AMA form 12/11/19 23:37 cbc and chemistries are unremarkable Discharge - Discharge Information Problems reviewed: Yes Clinical Impression/Diagnosis: Polysubstance abuse Condition: Stable Disposition: AGAINST MEDICAL ADVICE - Follow up/Referral - Patient Discharge Instructions Patient Printed Discharge Instructions: Substance Use Disorder, DI for Alcohol Abuse Additional Instructions: You came into the ER after taking PCP. We recommended you getting a head CT but you refused and demanded to leave against medical advice. Please come back to the emergency room immediately if you decide you want further treatment. You must return to the Emergency Department with any new complaints, if your symptoms persist and do not improve or if you develop any other new or worsening concerns. As discussed, please call to follow up with your Primary Care physician in 1-2 days to discuss what happened to you in the emergency room, and make sure you are being looked after and taken care of. Your emergency room visit is not complete without this follow up appointment. Thank you for coming to the [facility]. We hope you feel better soon! Print Language: KHMER - Post Discharge Activity
--- NOTE | 2019-12-11 21:34 | PDOC ---
History of Present Illness - General Chief Complaint: Alcohol intoxication Stated Complaint: OVERDOSE Time Seen by Provider: 12/11/19 21:23 History Source: Patient Exam Limitations: No Limitations, Intoxication - History of Present Illness Initial Comments: Hx limited patient intoxicated and does not provide a hx Mary is a 44 yo F w a of polysubstance abuse who presents intoxicated BIBEMS she was unresponsive outside of a restaurant. Per the father in law - the patient has a long history of opioid dependance and was on methadone for the past few years. She supposedly weaned herself off of methadone in August during COVID. The son states that she switched from methadone to PCP bc she always needs some sort of vice. The father in law states that he found 3 bags of Heroin with the patients stuff recently. This afternoon the father in law could not find the patient so he called the son to go looking for the patient. The son went out to her usual spot behind a restaurant and found her sitting down stooped over unconscious high on drugs. The son states there was no needles at the scene. He immediately called an ambulance to bring her into the hospital. EMS did not administer any meds to the patient prior to presenting to the ER. PMH: HTN, COPD, Bipolar disorder, polysubstance and opioid abuse, ADHD, suicide attempt, Chronic back pain, depression, anxiety PCP: Iggy Argueta PSH: b/l breast implants, thyroid cyst removal, back surgery Social Hx: Polysubstance abuse including heroin, opiates, PCP, methamphetamines, current everyday smoker Allergies: See EMR Past History - Medical History Allergies/Adverse Reactions: Allergies Allergy/AdvReac Type Severity Reaction Status Date / Time ampicillin Allergy Severe Swelling Verified 12/11/19 21:14 cephalexin monohydrate Allergy Severe Difficulty Verified 12/11/19 21:14 [From Keflex] Breathing Penicillins Allergy Severe Swelling Verified 12/11/19 21:14 Tetracyclines Allergy Severe Swelling Verified 12/11/19 21:14 IODINE Allergy Severe Rash Uncoded 12/11/19 21:14 Home Medications: Ambulatory Orders Guanfacine HCl [Tenex (Nf) 1Mg Tablet -] 1 mg PO HS 11/10/17 Hydroxyzine HCl 100 mg PO HS 11/10/17 Tizanidine HCl 6 mg PO TID PRN 11/10/17 Albuterol Sulfate Inhaler - [Ventolin HFA Inhaler -] 2 inh PO Q4H PRN #1 inhaler 11/14/17 Aripiprazole [Abilify] 30 mg PO HS #30 tablet 12/03/17 Venlafaxine HCl ER [Effexor Xr -] 150 mg PO DAILY #30 cap.er.24h 12/03/17 traZODone HCL [Desyrel -] 50 mg PO HS #30 tablet 12/03/17 Anemia: No Asthma: No Cancer: No Cardiac Disorders: No CVA: No COPD: Yes CHF: No Dementia: No Diabetes: No GI Disorders: No Disorders: No HTN: Yes Hypercholesterolemia: No Kidney Stones: No Liver Disease: No Psychiatric Problems: Yes (BIPOLAR, ADHD, SCHIZOPHRENIA, PARANOIA) Seizures: No Thyroid Disease: No - Surgical History Abdominal Surgery: No Appendectomy: No Cardiac Surgery: No Cholecystectomy: No Lung Surgery: No Neurologic Surgery: No Orthopedic Surgery: No - Reproductive History PID: No - Psycho-Social/Smoking History Smoking Status: Yes Smoking History: Current every day smoker Have you smoked in the past 12 months: Yes Number of Cigarettes Smoked Daily: 10 Information on smoking cessation initiated: Yes 'Breaking Loose' booklet given: 11/10/17 - Substance Abuse Hx (Audit-C & DAST Scrn) How often the patient has a drink containing alcohol: 2-3 times / week Number of drinks the patient has on a typical day: 1 or 2 How often the patient has six or more drinks on one occasion: Never Score: In Men: 4 or > Positive; In Women: 3 or > Positive: 3 Screen Result (Pos requires Nsg. Audit-10AR): Positive In the last yr the pt used illegal drug/Rx for NonMed reason: No Score: Yes response is considered Positive: 0 Screen Result (Positive result requires Nsg. DAST-10): Negative Review of Systems - Review of Systems Able to Perform ROS?: No (Intoxicated) *Physical Exam - Vital Signs Last Vital Signs Temp Pulse Resp BP Pulse Ox 98.3 F 87 17 93/61 100 12/11/19 20:30 12/11/19 20:30 12/11/19 20:30 12/11/19 20:30 12/11/19 20:30 - Physical Exam General Appearance: Yes: Nourished, Intoxicated, Other (Responsive to sternal rub, not to voice or gentle touch). No: Apparent Distress, Disheveled, Alcohol on Breath HEENT: positive: Other (Pinpoint pupils, equal and reactive to light b/l). negative: Scleral Icterus (R), Scleral Icterus (L), Muffled/Hoarse voice Neck: positive: Supple. negative: Lymphadenopathy (R), Lymphadenopathy (L) Respiratory/Chest: positive: Lungs Clear, Other (Bradypnea) Cardiovascular: positive: Regular Rhythm, Regular Rate, S1, S2 Vascular Pulses: Dorsalis-Pedis (R): 2+, Doralis-Pedis (L): 2+ Gastrointestinal/Abdominal: positive: Soft. negative: Tender Rectal Exam: positive: deferred Musculoskeletal: positive: Normal Inspection, Other (No track oliva). negative: Decreased Range of Motion Extremity: positive: Normal Capillary Refill, Normal Inspection, Normal Range of Motion, Pelvis Stable Integumentary: positive: Normal Color, Dry, Warm Neurologic: positive: Respond to painful stimul, Confused, Disoriented, Depressed Affect. negative: Fully Oriented, Alert, Facial Droop ED Treatment Course - LABORATORY CBC & Chemistry Diagram: 12/11/19 22:15 12/11/19 22:15 Medical Decision Making - Medical Decision Making Hx limited patient intoxicated and does not provide a hx Mary is a 44 yo F w a of polysubstance [facility] [place]. Per the father in law - the patient has a long history of opioid dependance and was on methadone for the past few years. She supposedly weaned herself off of methadone in August during COV. The son states that she switched from methadone to PCP bc she always needs some sort of vice. The father in law states that he found 3 bags of Heroin with the patients stuff recently. This afternoon the father in law could not find the patient so he called the son to go looking for the patient. The son went out to her usual spot behind a restaurant and found her sitting down stooped over unconscious high on drugs. The son states there was no needles at the scene. He immediately called an ambulance to bring her into the hospital. EMS did not administer any meds to the patient prior to presenting to the ER. Vital Signs Temp Pulse Resp BP Pulse Ox 98.3 F 87 17 93/61 100 12/11/19 20:30 12/11/19 20:30 12/11/19 20:30 12/11/19 20:30 12/11/19 20:30 DDx IBNLT: Heroin overdose, other substance abuse, electrolyte/metabolic disturbance, dehydration MDM: Patient is resting on the bed comfortably saturating at 100% and has a respiratory rate of 17 at bedside. She appears comfortable. Plan: Labs, Urine, IV hydration, re-assess when clinically sober Patient woke up in the ER and insists on leaving the ER against medical advice before her labs, urine, and CT happen. The patient appears clinically sober, is A&O x4, and appears to be capable and have capacity to make reasonable decisions. The patient states they are currently in the emergency department, knows who the president is, states the correct time, correct day, and correct month. The patient is ambulatory in ER and has walked around the nursing station multiple times with a straight gait, and is not ataxic. Tolerating PO well, ate a sandwich and drank juice. Denies having any SI or HI. Patient states will not be driving home. The patient is presenting with intoxication. I am concerned that this may be a brain bleed. The patient has verbalized understanding of my concerns. The patient is clinically sober and appears free from distracting injury. The patient appears to have intact insight, judgment, and reason. In my opinion, this patient has the capacity to make decisions The risks of leaving against medical advice without further evaluation treatment were discussed with the patient. These risks include and permanant disability. The patient indicated understanding of these risks and appeared to have the capacity to make this decision. The patient is unwilling to stay for a head CT and laboratory evaluation. Mary is unwilling to remain for additional monitoring. She is refusing further care and leaving against medical advice I'm unable to convince the patient to stay. I have asked the patient to return as soon as possible to complete her evaluation. Dispo: AMA Discharge - Discharge Information Problems reviewed: Yes Clinical Impression/Diagnosis: Polysubstance abuse Condition: Stable Disposition: AGAINST MEDICAL ADVICE - Admission No - Follow up/Referral - Patient Discharge Instructions Patient Printed Discharge Instructions: DI for Alcohol Abuse, Substance Use Disorder Additional Instructions: You came into the ER after taking PCP. We recommended you getting a head CT but you refused and demanded to leave against medical advice. Please come back to the emergency room immediately if you decide you want further treatment. You must return to the Emergency Department with any new complaints, if your symptoms persist and do not improve or if you develop any other new or worsening concerns. As discussed, please call to follow up with your Primary Care physician in 1-2 days to discuss what happened to you in the emergency room, and make sure you are being looked after and taken care of. Your emergency room visit is not complete without this follow up appointment. Thank you for coming to the [facility]. We hope you feel better soon! Print Language: SINHALA - Post Discharge Activity
[2019-12-11] MEDS ORDERED: SODIUM CHLORIDE 0.9% 500 ML INFUS.BAG IV ONE (21:39)
[2019-12-11 22:47] LABS: BASO % 0.9 % (0-2.0); EOS % 2.2 % (0-4.5); HEMATOCRIT 33.4 % (32.4-45.2); LYMPH % 43.8 % (8-40); MCH 31.7 pg (25.7-33.7); MEAN PLT VOLUME 7.4 fl (7.5-11.1); NEUT % 45.1 % (42.8-82.8); PLATELET COUNT 261 K/MM3 (134-434); RBC 3.48 M/mm3 (3.60-5.2); RDW 14.1 % (11.6-15.6); WHITE BLOOD COUNT 7.5 K/mm3 (4.0-10.0)
[2019-12-11 23:21] LABS: ALBUMIN 3.8 g/dl (3.4-5.0); ALK PHOS 57 U/L (45-117); BILIRUBIN,TOTAL 0.2 mg/dL (0.2-1); BLOOD UREA NITROGEN 21.7 mg/dL (7-18); CALCIUM 8.8 mg/dL (8.5-10.1); CHLORIDE 104 mmol/L (98-107); CREATININE 0.6 mg/dL (0.55-1.3); GLUCOSE,RANDOM 82 mg/dL (74-106); POTASSIUM 3.9 mmol/L (3.5-5.1); SGOT/AST 17 U/L (15-37); SGPT/ALT 19 U/L (13-61); SODIUM 139 mmol/L (136-145); TOT PROT 6.6 g/dl (6.4-8.2)
[2019-12-11 23:24] LABS: ANION GAP 6 MMOL/L (8-16); CO2 30 mmol/L (21-32)
[2019-12-12] MEDS ORDERED: ACETAMINOPHEN 325 MG TABLET (FP) PO ONE (00:21)
--- NOTE | 2019-12-12 10:12 | EKG ---
Test Reason : Blood Pressure : / mmHG Vent. Rate : 087 BPM Atrial Rate : 087 BPM P-R Int : 128 ms QRS Dur : 080 ms QT Int : 374 ms P-R-T Axes : 073 054 062 degrees QTc Int : 450 ms POOR DATA QUALITY, INTERPRETATION MAY BE ADVERSELY AFFECTED NORMAL SINUS RHYTHM NORMAL ECG WHEN COMPARED WITH ECG OF 23-NOV-2017 14:30, NO SIGNIFICANT CHANGE WAS FOUND Confirmed by Spencer Clark MD ([id number]) on 12/12/2019 10:11:46 AM Referred By: Confirmed By:Spencer Clark MD
== END 2019-12-12 01:00 | disposition left against medical advice (07) ==
LOC: JER 20:26
DX: F19.10 Other psychoactive substance abuse, uncomplicated (principal)
CPT/HCPCS: 36415; 80053; 80307; 85025; 93005; 93010; 99284-25